=== PATIENT | male | born 1985 | race Caucasian/White ===

== ENCOUNTER 2018-04-29 15:13 | Emergency (ER) | payer BC, SELFPAY ==
[2018-04-29 15:15] VITALS: BP 124/72; PULSE 68; RESP 18; TEMP 36.7; O2SAT 99
--- NOTE | 2018-04-29 15:25 | ED.GENADUL_ITS ---
Discharge Plan Discharge Details Chief Complaint: FlankPain Primary Care Provider: NONE,NONE ED Provider: Gary Hernandez Home Meds and New Rx's Prescriptions: No Action magnesium 250 mg Tablet 1 tab PO DAILY RF: 0 topiramate 100 mg Tablet 300 mg PO DAILY RF: 0 melatonin 10 mg Tablet 10 mg PO HS PRNRF: 0 Medical Decision Making 32yom with flank pain that has stuttered over days time. He arrives afebrile, interactive, well-appearing. He is a stone former and his exam is notable for tenderness overlying the right abdomen and flank. Differential diagnosis would include renal colic, urinary tract infection, muscular strain of the right paraspinous musculature. Patient had IV access established, given fluid bolus and parenteral analgesia. He is referred for laboratory testing and CT scan. Patient has evidence of trace hematuria. His labs are otherwise reassuring. He is noted to have a potassium of 3.3. CT reveals left-sided renal calculi without evidence of right sided calculus or ureteral obstruction. Patient's pain is improved with analgesia. He is stable and improved and appropriate for discharge home. He is desirous of obtaining primary care in this area and we will ask care management to assist with obtaining a follow-up appointment. HPI General Mode of arrival: ambulatory . Date/Time Provider Initiated Documentation: 04/29/18 15:15 . Limitations to Documentation: no limitations . History of Present Illness 32 year old M presents to the emergency department with the chief complaint of R flank pain, described as moderate and similar to prior episodes, Patient started experiencing this day(s) and it has been intermittent. No relieving factors improve symptom(s), No exacerbating factors reported . Patient notes denies fever/chills. Patient did receive the following treatments prior to arrival, none HPI Narrative: 32yom with stuttering R flank pain over days time, worse today, similar to previous kidney stones. No f/c/n/v. Related Data Home Medications Medication Instructions Recorded Confirmed magnesium 1 tab PO DAILY 04/29/18 04/29/18 melatonin 10 mg PO HS PRN 04/29/18 04/29/18 topiramate 300 mg PO DAILY 04/29/18 04/29/18 Allergies Allergy/AdvReac Type Severity Reaction Status Date / Time acetaminophen [From Vicodin] Allergy Unverified 04/29/18 15:29 amitriptyline Allergy Unverified 04/29/18 15:29 hydrocodone [From Vicodin] Allergy Unverified 04/29/18 15:29 General Stated Complaint: FlankPain JACK: 3 Review of Systems Review of Systems 8 systems reviewed and otherwise neg Exam Narrative Exam Narrative: GEN: awake, alert, oriented 3. Pleasant, well groomed, interactive. HEAD: Normocephalic, atraumatic ENT: Mucous membranes moist, oropharynx unremarkable, External ear exam unremarkable EYES: PERRL, EOMI NECK: Full ROM, no CHANNING, no menigismus CHEST/RESP: Nontender, clear to auscultation bilateral, no wheeze/rhonchi/rales CARDIOVASCULAR: RRR, no murmur, rub sherice. 2+ Rad pulse bilateral ABDOMEN: Soft, min R tenderness to palpation without rebound or guarding, no mass. +Bowel sounds. Right CVA tenderness. Back exam otherwise unremarkable EXT: Full ROM, no edema, no rash Neuro: Grossly normal neurologic exam, conversant, interactive. Psych: Speech fluent, thoughts congruent, affect normal Course Vital Signs Temperature 36.7 C 04/29/18 15:15 Pulse 68 04/29/18 15:15 Respiratory Rate 18 04/29/18 15:15 Blood Pressure 124/72 04/29/18 15:15 Pulse Oximetry 99 04/29/18 15:15 Temperature 36.7 C 04/29/18 15:15 Temperature Source Skin 04/29/18 15:15 Pulse 68 04/29/18 15:15 Respiratory Rate 18 04/29/18 15:15 Blood Pressure 124/72 04/29/18 15:15 Blood Pressure Position Sitting 04/29/18 15:15 Pulse Oximetry 99 04/29/18 15:15 Oxygen Delivery Method Room Air 04/29/18 15:15 Oxygen Flow Rate 0 04/29/18 15:15 Pain Level 8 04/29/18 15:15
--- NOTE | 2018-04-29 15:31 | DI.CT_ITS ---
SYMPTOMS/DIAGNOSIS: RIGHT FLANK PAIN ABDOMINAL AND PELVIC CT: CT examination of the abdomen and pelvis was performed without contrast administration. Images obtained through the lung bases are unremarkable. The liver, spleen, pancreas, gallbladder and bile ducts are unremarkable. Adrenals appear intact bilaterally. Abdominal aorta is of normal diameter. No abdominal wall hernia seen. No significant abdominal or pelvic adenopathy seen. The appendix appears normal. No focal bowel pathology identified. Right kidney and ureter are normal in appearance. No evidence of obstruction or calcification. Left kidney contains multiple calculi, the largest measuring about 13 mm in diameter. No left hydronephrosis, hydroureter or ureterolithiasis identified. Urinary bladder is essentially empty. CONCLUSION: Nonobstructing left nephrolithiasis. No other significant finding.
[2018-04-29] MEDS: Ondansetron 4 MG/2 ML VIAL IVP (15:49)
[2018-04-29] MEDS: Ketorolac 30 MG/ML VIAL IVP (15:49)
[2018-04-29] MEDS: Normal Saline 1,000 ML 1000 ML IV (15:49)
[2018-04-29 15:54] LABS: Bilirubin Negative (Negative); Blood Trace-intact (Negative); Clarity Clear; Glucose Negative (Negative); Ketones Negative (Negative); Leukocyte Esterase Negative (Negative); Nitrite Negative (Negative); Urobilinogen 0.2 EU/dL (Up TO 0.2)
[2018-04-29 15:57] LABS: Abs Immature Grans 0.01 k/cumm (0.0-0.09); Absolute Basophil Count 0.02 k/cumm (0.0-0.2); Absolute Eosinophil Count 0.18 k/cumm (0.0-0.7); Absolute Lymphocyte Count 1.89 k/cumm (1.2-3.4); Absolute Monocyte Count 0.68 k/cumm (0.11-0.7); Absolute Neutrophil Count 3.43 k/cumm (1.2-6.7); Basophils % 0.3; Eosinophils % 2.9; HCT 44.1 % (40.0-50.0); HGB 14.5 g/dL (13.5-17.5); Immature Grans % 0.2; Lymphocytes % 30.4; Mean Corp. HGB Concentration 32.9 g/dL (32.0-36.0); Mean Corpuscular Hemoglobin 28.2 pg (27.0-33.0); Mean Corpuscular Volume 85.8 fL (80-95); Mean Platelet Volume 9.9 fL (8.0-11.0); Neutrophils % 55.2; Platelet Count 202 x1000/uL (130-400); RBC 5.14 m/cumm (4.50-6.00); RBC Distribution Width 13.4 % (11.8-14.1); White Blood Cell Count 6.21 k/cumm (4.4-10.8)
[2018-04-29 16:12] LABS: ALT 37 U/L (12-78); AST 19 U/L (15-37); Albumin 4.1 g/dL (3.4-5.0); Alkaline Phosphatase 116 U/L (46-116); Anion Gap 7.2 mmol/L (3-11); BUN 14 mg/dL (7-18); Bilirubin, Total 0.4 mg/dL (0.2-1.0); CO2 25.8 mmol/L (21.0-32.0); CREATININE 1.29 mg/dL (0.70-1.30); Calcium 8.6 mg/dL (8.5-10.1); Chloride 106 mmol/L (98-107); Glucose 85 mg/dL (70-100); Potassium 3.3 mmol/L (3.5-5.1); Sodium 139 mmol/L (136-145)
[2018-04-29 16:20] LABS: Epithelial Cells Rare HPF (Negative); RBC 0-2 (0-2); WBC 0-2 HPF (0-5)
[2018-04-29 16:21] LABS: Bacteria Rare HPF (Negative); C & S Indicated? No; Casts Negative LPF (Negative); Crystals Negative HPF (Negative); Mucus Negative (Negative)
[2018-04-29] MEDS: HYDROmorphone 2 MG/ML VIAL 1 MG IVP (16:29)
[2018-04-29 16:59] VITALS: BP 109/74; PULSE 56; RESP 17; TEMP 36.9; O2SAT 99
[2018-04-29 17:42] VITALS: BP 109/74; PULSE 56; RESP 17; TEMP 36.9; O2SAT 99
--- NOTE | 2018-04-30 08:31 | PDOC.ERCMPRO ---
Care Management Progress Note 04/30/18-Pt seen with a kidney stone on 04/29/[address] Adi Hernandez. Pt request to establish a PCP as he he new to the area. Referral faxed to [facility] as Dr. Salinas Dixon was radio division officer.
== END 2018-04-29 17:43 | disposition home or self-care (01) ==
PROVIDERS: Emergency Provider Emergency Medicine
DX: R10.31 Right lower quadrant pain (principal); Z87.442 Personal history of urinary calculi
CPT/HCPCS: 36415; 80053; 96361; 96374; 96375; 99284; 74176; 81003; 81015; 85025; J1885; J2405

== ENCOUNTER → 2021-02-14 09:07 | Outpatient (CLI) | payer BC, SELFPAY ==
--- NOTE | 2021-02-14 11:35 | DI.RAD_ITS ---
Exam(s) XR CHEST 2V PA LATERAL EXAM: XR CHEST 2V PA LATERAL CLINICAL HISTORY: HEMOPTYSIS, R04.2 TECHNIQUE: 2D digital imaging was performed. COMPARISON: No exams were available for comparison FINDINGS: MEDIASTINUM: Normal. HEART: Normal. PULMONARY VASCULATURE: Normal. LUNGS: Clear. PLEURAL SPACE: No pleural effusion or pneumothorax. BONE:Unremarkable for age. IMPRESSION: No acute abnormality. DATA REPOSITORY: RADIATION DOSE DELIVERED:
== END ==
PROVIDERS: Visit Provider Nurse Practitioner Family
DX: R04.2 Hemoptysis (principal)
CPT/HCPCS: 71046

== ENCOUNTER 2021-02-14 15:41 | Outpatient (REF) | payer BC, SELFPAY ==
[2021-02-14 18:53] LABS: Prothrombin Time 9.9 sec (9.3-11.0)
[2021-02-14 19:15] LABS: HGB 15.1 g/dL (13.5-17.5); MCHC 32.8 % (32.0-36.0); MCV 85.3 fL (80-95); MPV 10.3 fL (8.0-11.0); Platelet Count 226 10^3/uL (130-400); RBC 5.39 10^6/uL (4.36-5.78); RDW 12.9 % (11.8-14.1); RDW-SD 39.8 fL; WBC 6.26 10^3/uL (4.4-10.8)
== END 2021-02-14 15:42 | disposition home or self-care (01) ==
LOC: LBN 15:41
PROVIDERS: Visit Provider Nurse Practitioner Family
DX: R04.2 Hemoptysis (principal)
CPT/HCPCS: 85027; 85610; 85730

== ENCOUNTER → 2021-03-09 15:42 | Outpatient (CLI) | payer BC, SELFPAY ==
--- NOTE | 2021-03-09 | DI.RAD_ITS ---
Exam(s) XR LUMBAR SPINE COMPLETE EXAM: XR LUMBAR SPINE COMPLETE CLINICAL HISTORY: LOW BACK PAIN, M54.5. TECHNIQUE: 2D digital imaging was performed. COMPARISON: No exams were available for comparison FINDINGS: BONES: No fracture or destructive lesion. Vertebral bodies are unremarkable. No facet hypertrophy louis ntified. DISKS: Intervertebral disc spaces are maintained. ALIGNMENT: Lumbar spinal alignment is within normal limits. SOFT TISSUE: Normal. IMPRESSION: Unremarkable radiographs of the lumbar spine. DATA REPOSITORY: RADIATION DOSE DELIVERED:
== END ==
PROVIDERS: Visit Provider Physician Assistant Medical
DX: M54.5 Low back pain (principal)
CPT/HCPCS: 72110

== ENCOUNTER 2021-03-14 19:41 | Emergency (ER) | payer BC, SELFPAY ==
[2021-03-14 19:47] VITALS: BP 118/87; PULSE 88; RESP 18; TEMP 36.7; O2SAT 97
--- NOTE | 2021-03-14 20:00 | DI.CT_ITS ---
Exam(s) CT ABDOMEN PELVIS W EXAM: CT ABDOMEN PELVIS W CLINICAL HISTORY: right flank and back pain, fhx of colon cancer. TECHNIQUE: Imaging Protocol: Axial computed tomography images with coronal and sagittal reformatted images were created and reviewed CONTRAST MATERIAL: Intravenous: Omnipaque 100cc Oral: None COMPARISON: CT CT renal colic wo from 04/29/2018 FINDINGS: VISUALIZED LUNG BASES: No nodules nor pleural effusions evident. ABDOMEN: There is no ascites. LIVER: There are no focal hepatic lesions evident . GALLBLADDER/BILIARY: No obvious gallbladder pathology. CBD is not dilated. PANCREAS: No evidence of pancreatic mass nor dilatation of the pancreatic duct. SPLEEN: Spleen is not enlarged. No obvious intrasplenic lesions. Splenic and portal veins are paten t. ADRENALS: There are no significant adrenal masses. KIDNEYS:No cysts evident. No solid renal masses. However, there are multiple calculi in the inferior pole of the left kidney. The largest of these measures 8 millimeters. No hydronephrosis nor hydrou reter. No calculi in the nondistended urinary bladder.. ABDOMINAL AORTA: Abdominal aorta is not enlarged. LYMPH NODES:There is no retroperitineal nor paraaortic adenopathy. ABDOMINAL WALL: No evidence of significant anterior abdominal wall hernia. GI: There is fecalization of distal small bowel loops, these exhibiting upper normal diameter. Also abundant fecal material in the colon. Appendix unremarkable. PELVIS: GI: No evidence of appendicitis.No evidence of sigmoid diverticulitis. LYMPH NODES: There is no intrapelvic nor inguinal adenopathy. REPRODUCTIVE: Age-appropriate URINARY BLADDER: No calculi nor obvious masses evident OSSEOUS: No significant osseous lesions. IMPRESSION: 1. Abundant fecal material in the colon and there is also fecalization of distal small bowel loops. Probably related to delayed bowel transit. 2. There are nonobstructive calculi in the lower pole of the left kidney. Largest calculus at this l ocation is 8 millimeters. There are no calculi in the opposite-right kidney. No hydronephrosis. No hydroureter. RADIATION DOSE DELIVERED: Total DLP DATA REPOSITORY: All CT scans at this facility are submitted to the National Radiology Data Registry (NRDR) Dose Index Registry (DIR) with the [employer] (ACR). RADIATION OPTIMIZATION: All CT scans at this facility use at least one of these dose optimization te chniques: automated exposure control; mA and/or kV adjustment per patient size (includes targeted exa ms where dose is matched to clinical indication); or iterative reconstruction.
--- NOTE | 2021-03-14 20:08 | DI.CT_ITS ---
Exam(s) CT LUMBAR SPINE RECONS EXAM: CT LUMBAR SPINE RECONS CLINICAL HISTORY: right back pain, fhx of colon cancer. TECHNIQUE: Imaging Protocol: Axial computed tomography images with coronal and sagittal reformatted images were created and reviewed COMPARISON: CT CT renal colic wo from 04/29/2018 FINDINGS: Bones: There are no fractures, listhesis, nor pars defects. There are no lytic osseous lesions evide nt. Left renal calculi are incidentally noted in the field of view of this study. INDIVIDUAL LEVELS: T12-L1:No disc herniation nor canal stenosis. Facet joints unremarkable. No foraminal stenosis. L1-2: No disc herniation nor canal stenosis. Facet joints unremarkable. No foraminal stenosis. L2-3: No disc herniation nor canal stenosis. Facet joints unremarkable. No Foraminal stenosis L3-4: No disc herniation nor canal stenosis. Facet joints unremarkable. No foraminal stenosis. L4-5: Minimal disc space narrowing. Mild annular bulging. Mild central spinal canal stenosis. No p rominent foraminal stenosis. L5-S1: Mild disc space narrowing. Broad annular bulging. Moderate central spinal canal stenosis. Mil d bilateral foraminal stenosis. Mild facet arthropathy bilaterally. The visualized sacroiliac joints and sacrum appear unremarkable. PARASPINAL SOFT TISSUES: Visualized paraspinal tissues appear unremarkable. IMPRESSION: 1. Most significant findings at L5-S1 level where there is broad annular bulging with moderate centra l spinal canal stenosis. Also mild bilateral foraminal stenosis at this level. 2. Similar but somewhat less findings at L4-5 level. 3. No fractures. No listhesis. RADIATION DOSE DELIVERED: Total DLP DATA REPOSITORY: All CT scans at this facility are submitted to the National Radiology Data Registry (NRDR) Dose Index Registry (DIR) with the [employer] (ACR). RADIATION OPTIMIZATION: All CT scans at this facility use at least one of these dose optimization te chniques: automated exposure control; mA and/or kV adjustment per patient size (includes targeted exa ms where dose is matched to clinical indication); or iterative reconstruction.
--- NOTE | 2021-03-14 20:12 | ED.GENADUL_ITS ---
Discharge Plan Disposition Patient Disposition: HOME Condition: Good Discharge Details Clinical Impression: Lumbago Primary Care Provider: None,None ED Provider: Rizwan Recio Home Meds and New Rx's Prescriptions: New cyclobenzaprine 10 mg tablet 10 mg PO TID Qty: 14 RF: 0 lidocaine [Lidoderm] 1 PATCH patch 1 patch Topical Q24H Qty: 5 RF: 0 prednisone 50 MG tablet 50 mg PO DAILY Qty: 5 RF: 0 Continued gabapentin 300 mg capsule 300 mg PO BID RF: 0 Aimovig Autoinjector 140 mg/mL auto-injector 140 mg SUBCUT Q1-3M RF: 0 furosemide 20 mg tablet 20 mg PO BID RF: 0 Discharge Instructions Instructions: Low Back Strain (ED) Additional Instructions: At this time your signs and symptoms are clinically consistent with a back sprain. This can cause significant pain and take a fair bit of time to heal. I expect 1 to 2 months for potential resolution. In the meantime do not lift anything greater than 5 pounds for the next 2 weeks. Avoid any significant vigorous physical activity. Perform easy gentle regular activities at home without any significant bending or lifting. Please take the steroids as directed. You have been given a prescription for Lidoderm patch. If your insurance does not cover this you can get [id number] Lidoderm patches at 4% which are almost just as effective. Please take the Flexeril as directed but do not take it when driving or operating any vehicles or heavy machinery, swimming, taking long baths, or operating firearms. Please use a heating pad as often as possible on your back. Perform daily gentle stretches on your back. Please continue to take the Tylenol and Motrin. You can take 1000 mg of Tylenol every 6 hours and 600 mg of ibuprofen every 6 hours. If you notice any worsening of your symptoms, or any new symptoms such as vomiting, diarrhea, fever, chills, shortness of breath, chest pain, numbness or tingling in your groin or legs, weakness in your legs, loss of control for your bowels or bladder, or fainting , please return immediately to the emergency department for reevaluation. Please follow up with your primary care provider as soon as possible for reassessment and reevaluation. As always, it was a pleasure participating in your medical care today. We have given you a few Valium pills to use for breakthrough pain. I would not take these in conjunction with the cyclobenzaprine, as it can cause significant lightheadedness and sleepiness. We will place a referral for a new primary care provider for you. If your symptoms continue you may need to follow-up with physical therapy and the back pain center at [facility]. Medical Decision Making 35-year-old male with no significant past medical history except for kidney stones presents today for lower back pain. For the last month the patient has had back pain, it seems to lateralize to the right. It is worse with flexion and extension of the back, over the last week it has become notably worse. It is also worsened recently with bowel movement. He denies any urinary complaints. He states that this does not feel like his kidney stones in the past. He denies any fever chills or weight loss. He was seen by the [facility] last week, x-ray was unremarkable, he was started on Flexeril Tylenol Motrin Lidoderm patch which slightly helped the pain at first, but now the pain is worse and unimproved with these meds. He does have a strong family history of colon cancer. He denies any blood in his stool. No other complaints at this time. No other modifying factors. Patient denies any saddle anesthesia, numbness or tingling in the groin, change in sensation when wiping. Patient denies any change in sensation during sexual intercourse, difficulty achieving or maintaining an erection or ejaculation, bowel or bladder incontinence, leakage, or retention. Patient denies any weakness in the lower extremities, atypical falls or imbalance. Exam demonstrates midline tenderness at L3 and L4, mild spasm on the right. Normal neurologic exam otherwise. Differential includes musculoskeletal spasm, less likely malignancy. Less likely kidney stone. We will treat the patient's pain, get a CT scan of the abdomen pelvis and L-spine, monitor closely and reassess. 9:43 PM Laboratory work-up is returned unremarkable, CT scan shows no evidence of significant thickening of the colon, no signs of mass. He does have some mild degenerative disc disease at L4-L5 and S1 levels. Likely a potential causative agent for his pain. Patient's pain is stable here after for morphine. He feels well. He was given steroids. Will give steroid Lidoderm patch and continued Flexeril for home use, with 3 Valium tablets for breakthrough pain. Will recom mend close follow-up with a new PCP that we will help establish, physical therapy as needed at home, and potential referral to the [facility] back pain center if his pain does not improve with this therapy. Repeat exam continues to show no signs of cauda equina syndrome or cord compression. Discussed red flags which to return. I have extensively reviewed the treatment plan and discharge instructions with the patient. I have addressed all patient concerns at this time. The patient was made aware of what symptoms to monitor for that would warrant a return to the emergency department. Discussed the plan with the patient, they demonstrate verbal understanding and agreement with our assessment and plan at this time. The documentation in this chart was dictated using [employer] dictation software. Please excuse any dictation errors. FINDINGS: Lungs: Lung bases are clear. Liver: Unremarkable. No mass. Gallbladder and bile ducts: Unremarkable. No calcified stones. No ductal dilation. Pancreas: Unremarkable. No ductal dilation. Spleen: Unremarkable. No splenomegaly. Adrenal glands: Normal. No mass. Kidneys and ureters: Symmetric renal enhancement without mass. There are a few nonobstructive nephroliths within the inferior left renal pole collecting system, largest measuring up to 8 mm. No hydronephrosis. Ureters are normal in course and caliber. Stomach and bowel: Small bowel is normal in caliber without focal bowel wall thickening. There is fecalization of the distal/terminal ileum. There is moderate colonic stool with well-formed stool throughout the colon. No focal colonic mural thickening or significant pericolonic inflammatory stranding. No bowel obstruction Appendix: Within normal limits. Intraperitoneal space: No significant free fluid in the abdomen or pelvis. No free air. Vasculature: Within normal limits. No abdominal aortic aneurysm. Lymph nodes: No pathologically enlarged lymph nodes. Urinary bladder: Unremarkable as visualized. Reproductive: Unremarkable as visualized. Bones/joints: No acute fracture. Soft tissues: No focal abnormality. IMPRESSION: 1. Fecalization of the distal/terminal ileum. Nonspecific finding, could be seen in association with enteritis, ileus, or other causes of delayed small bowel transit. Correlate clinically. 2. Moderate colonic stool. Correlate clinically for constipation. 3. Nonobstructive left nephroliths measuring up to 8 mm. Thank you for allowing us to participate in the care of your patient. Dictated and Authenticated by: Adarsh Giron MD 03/14/2021 9:25 PM Eastern Time ([place] & [place]) FINDINGS: Vertebrae: No suspicious osseous lytic or blastic lesion. Vertebral body heights are preserved, no discrete or displaced fracture. No spondylolisthesis. Discs/Spinal canal/Neural foramina: There is mild intervertebral disc height loss at the L4-S1 levels with small posterior disc bulges. No high-grade osseous neural foraminal or osseous central canal stenosis. Kidneys and ureters: Nonobstructive left nephroliths. No hydronephrosis. Soft tissues: Unremarkable. IMPRESSION: Mild degenerative disc disease at the L4-S1 levels as discussed. Thank you for allowing us to participate in the care of your patient. HPI General Date/Time Provider Initiated Documentation: 03/14/21 19:42 . HPI Narrative: 35-year-old male with no significant past medical history except for kidney stones presents today for lower back pain. For the last month the patient has had back pain, it seems to lateralize to the right. It is worse with flexion and extension of the back, over the last week it has become notably worse. It is also worsened recently with bowel movement. He denies any urinary complaints. He states that this does not feel like his kidney stones in the past. He denies any fever chills or weight loss. He was seen by the [facility] last week, x-ray was unremarkable, he was started on Flexeril Tylenol Motrin Lidoderm patch which slightly helped the pain at first, but now the pain is worse and unimproved with these meds. He does have a strong family history of colon cancer. He denies any blood in his stool. No other complaints at this time. No other modifying factors. Patient denies any saddle anesthesia, numbness or tingling in the groin, change in sensation when wiping. Patient denies any change in sensation during sexual intercourse, difficulty achieving or maintaining an erection or ejaculation, bowel or bladder incontinence, leakage, or retention. Patient denies any weakness in the lower extremities, atypical falls or imbalance. Related Data Home Medications Medication Instructions Recorded Confirmed Aimovig Autoinjector 140 mg SUBCUT Q1-3M 03/14/21 03/14/21 cyclobenzaprine 10 mg PO TID #14 tab 03/14/21 furosemide 20 mg PO BID 03/14/21 03/14/21 gabapentin 300 mg PO BID 03/14/21 03/14/21 lidocaine [Lidoderm] 1 patch TOPICAL Q24H #5 ea 03/14/21 prednisone 50 mg PO DAILY #5 tab 03/14/21 Previous Rx's Medication Instructions Recorded cyclobenzaprine 10 mg PO TID #14 tab 03/14/21 lidocaine [Lidoderm] 1 patch TOPICAL Q24H #5 ea 03/14/21 prednisone 50 mg PO DAILY #5 tab 03/14/21 Allergies Allergy/AdvReac Type Severity Reaction Status Date / Time acetaminophen [From Vicodin] Allergy Unverified 03/14/21 20:28 amitriptyline Allergy Unverified 03/14/21 20:28 hydrocodone [From Vicodin] Allergy Unverified 03/14/21 20:28 General Stated Complaint: Nk/Back Pain JACK: 4 Review of Systems All systems reviewed & are unremarkable except as noted in HPI and below PFSH Social History Smoking/Tobacco Use Status: Never Smoking risk assessment performed?: Yes Alcohol Intake: never Drug use: Never Substance use type: does not use Do you feel safe at home: Yes Do you feel safe in your relationship?: Yes Exam Narrative Exam Narrative: 1.Const: Well-nourished, Well-developed, appearing stated age 2.Eyes: PERRL, no conjunctival injection, and symmetrical lids. 3.ENT: Atraumatic external nose and ears. Moist MM. Neck: Symmetric, trachea midline, No thyromegaly. 4.CVS: +S1/S2, No murmurs or gallops. Peripheral pulses 2+ and equal in all extremities. Brisk capillary refill in all extremities. 5.RESP: Unlabored respiratory effort. Clear to auscultation bilaterally. No wheezes rales or rhonchi 6.GI: Soft, Nontender/Nondistended, No hepatosplenomegaly. No guarding or rebound. 7.MSK: Normocephalic/Atraumatic, Extremities w/o deformity or ttp No cyanosis or clubbing, Normal movement of all extremities No midline tenderness to palpation over the CT spine. Patient does have midline spinal tenderness over the lower lumbar spine L3 and L4 normal ROM in flexion, extension, side bend, and rotation. Patient has +5 out of 5 strength in the lower extremities in dorsiflexion and plantarflexion, knee flexion and exte nsion, hip flexion and extension. Normal strength for dorsiflexion and plantar flexion of the great toe bilaterally. There is +2 over 2 dorsalis pedis pulses bilaterally. There is normal sensation to the skin with light touch at the foot, knee, and hip. Normal saddle sensation. Good sensation over the deep sural nerve area bilaterally. Rectal exam demonstrates good rectal tone and good perirectal sensation. Reflexes are +2 over 4 in the patellar reflex bilaterally. +5 out of 5 strength in the medial, ulnar, radial nerve distribution bilaterally in the hands as well as intact light touch sensation to these dermatomes on the hands 8.Skin: Warm, Dry. No rashes or lesions. 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 Sensation grossly intact, no focal neurologic deficits. 10.Psych: (AAO) x3. Appropriate mood and affect Course Vital Signs Vital signs: Vital Signs Temperature 36.7 C 03/14/21 19:47 Pulse 88 03/14/21 19:47 Respiratory Rate 18 03/14/21 19:47 Blood Pressure 118/87 03/14/21 19:47 Pulse Oximetry 97 03/14/21 19:47 Temperature 36.7 C 03/14/21 19:47 Temperature Source Temporal Artery Scan 03/14/21 19:47 Pulse 88 03/14/21 19:47 Respiratory Rate 18 03/14/21 19:47 Respiratory Effort Non-Labored 03/14/21 19:54 Blood Pressure 118/87 03/14/21 19:47 Blood Pressure Position Sitting 03/14/21 19:47 Pulse Oximetry 97 03/14/21 19:47 Oxygen Delivery Method Room Air 03/14/21 19:47 Oxygen Flow Rate 0 03/14/21 19:47 Pain Level 9 03/14/21 20:02
[2021-03-14] MEDS: Ketorolac 15 MG/ML VIAL IVP (20:37)
[2021-03-14] MEDS: methylPREDNISolone SUCC 125 MG VIAL IVP (20:37)
[2021-03-14 20:39] LABS: Abs Immature Grans 0.01 10^3/uL (0.0-0.06); Absolute Basophil Count 0.04 10^3/uL (0.0-0.2); Absolute Eosinophil Count 0.18 10^3/uL (0.0-0.7); Absolute Lymphocyte Count 2.22 10^3/uL (1.2-3.4); Absolute Monocyte Count 0.53 10^3/uL (0.1-0.8); Absolute Neutrophil Count 3.61 10^3/uL (1.2-6.7); Basophils % 0.6; Eosinophils % 2.7; HCT 43.7 % (40.0-50.0); HGB 14.3 g/dL (13.5-17.5); Immature Grans % 0.2; Lymphocytes % 33.7; MCHC 32.7 % (32.0-36.0); MCV 85.5 fL (80-95); MPV 9.5 fL (8.0-11.0); Neutrophils % 54.8; Nucleated RBC 0 %; Platelet Count 211 10^3/uL (130-400); RBC 5.11 10^6/uL (4.36-5.78); RDW-SD 40.2 fL; WBC 6.59 10^3/uL (4.4-10.8)
--- NOTE | 2021-03-14 20:39 | NUR.NOTE ---
To CT scan. Gait steady.Nursing Note:
[2021-03-14] MEDS: Omnipaque 350 MG/ML 100 ML BTL IV (20:50)
[2021-03-14] MEDS: Normal Saline - Diluent 50 ML VIAL IV (20:52)
[2021-03-14] MEDS: Normal Saline Flush 10 ML SYR IVP (20:52)
[2021-03-14 20:58] LABS: ALT 40 U/L (16-63); AST 25 U/L (15-37); Albumin 3.9 g/dL (3.4-5.0); Alkaline Phosphatase 101 U/L (46-116); Anion Gap 8.9 mmol/L (3-11); BUN 21 mg/dL (7-18); Bilirubin, Total 0.4 mg/dL (0.2-1.0); CO2 29.1 mmol/L (21.0-32.0); CREATININE 1.3 mg/dL (0.70-1.30); Calcium 9.2 mg/dL (8.5-10.1); Chloride 104 mmol/L (98-107); Glucose 102 mg/dL (74-106); Potassium 3.9 mmol/L (3.5-5.1); Sodium 142 mmol/L (136-145); Total Protein 7.6 g/dL (6.4-8.2)
[2021-03-14 21:03] LABS: Bilirubin Negative (Negative); Blood Negative (Negative); Clarity Sl Cloudy (Clear); Glucose Negative (Negative); Ketones Negative (Negative); Leukocyte Esterase Negative (Negative); Nitrite Negative (Negative); Urobilinogen 0.2 EU/dL (Up TO 0.2)
[2021-03-14 21:24] VITALS: BP 114/72; PULSE 70; RESP 18; O2SAT 98
--- NOTE | 2021-03-14 21:26 | DI.VRAD_ITS ---
PROCEDURE INFORMATION: Exam: CT Abdomen And Pelvis With Contrast Exam date and time: 03/14/2021 8:11 PM Age: 35 years old Clinical indication: Other: Right flank and back pain, fhx of colon cancer TECHNIQUE: Imaging protocol: Computed tomography of the abdomen and pelvis with contrast. Radiation optimization: All CT scans at this facility use at least one of these dose optimization techniques: automated exposure control; mA and/or kV adjustment per patient size (includes targeted exams where dose is matched to clinical indication); or iterative reconstruction. Contrast material: OMNIPAQUE 350; Contrast volume: 100 ml; Contrast route: INTRAVENOUS (IV); COMPARISON: CT renal colic wo 04/29/2018 3:42 PM FINDINGS: Lungs: Lung bases are clear. Liver: Unremarkable. No mass. Gallbladder and bile ducts: Unremarkable. No calcified stones. No ductal dilation. Pancreas: Unremarkable. No ductal dilation. Spleen: Unremarkable. No splenomegaly. Adrenal glands: Normal. No mass. Kidneys and ureters: Symmetric renal enhancement without mass. There are a few nonobstructive nephroliths within the inferior left renal pole collecting system, largest measuring up to 8 mm. No hydronephrosis. Ureters are normal in course and caliber. Stomach and bowel: Small bowel is normal in caliber without focal bowel wall thickening. There is fecalization of the distal/terminal ileum. There is moderate colonic stool with well-formed stool throughout the colon. No focal colonic mural thickening or significant pericolonic inflammatory stranding. No bowel obstruction. Appendix: Within normal limits. Intraperitoneal space: No significant free fluid in the abdomen or pelvis. No free air. Vasculature: Within normal limits. No abdominal aortic aneurysm. Lymph nodes: No pathologically enlarged lymph nodes. Urinary bladder: Unremarkable as visualized. Reproductive: Unremarkable as visualized. Bones/joints: No acute fracture. Soft tissues: No focal abnormality. IMPRESSION: 1. Fecalization of the distal/terminal ileum. Nonspecific finding, could be seen in association with enteritis, ileus, or other causes of delayed small bowel transit. Correlate clinically. 2. Moderate colonic stool. Correlate clinically for constipation. 3. Nonobstructive left nephroliths measuring up to 8 mm. Dictated and Authenticated by: Adarsh Giron MD. Ordering:CHRISTOPHER Astorga MD
--- NOTE | 2021-03-14 21:30 | DI.VRAD_ITS ---
PROCEDURE INFORMATION: Exam: CT Lumbar Spine Without Contrast Exam date and time: 03/14/2021 8:26 PM Age: 35 years old Clinical indication: Other: Right back pain, fhx of colon cancer; Additional info: Right back pain, fhx of colon cancer recons TECHNIQUE: Imaging protocol: Computed tomography images of the lumbar spine without contrast. Radiation optimization: All CT scans at this facility use at least one of these dose optimization techniques: automated exposure control; mA and/or kV adjustment per patient size (includes targeted exams where dose is matched to clinical indication); or iterative reconstruction. COMPARISON: CR XR LUMBAR SPINE COMPLETE 03/09/2021 1:12 PM FINDINGS: Vertebrae: No suspicious osseous lytic or blastic lesion. Vertebral body heights are preserved, no discrete or displaced fracture. No spondylolisthesis. Discs/Spinal canal/Neural foramina: There is mild intervertebral disc height loss at the L4-S1 levels with small posterior disc bulges. No high-grade osseous neural foraminal or osseous central canal stenosis. Kidneys and ureters: Nonobstructive left nephroliths. No hydronephrosis. Soft tissues: Unremarkable. IMPRESSION: Mild degenerative disc disease at the L4-S1 levels as discussed. Dictated and Authenticated by: Adarsh Giron MD. Ordering:CHRISTOPHER Astorga MD
--- NOTE | 2021-03-14 21:45 | NUR.NOTE ---
Nursing Note: REFERAL SENT TO CM FOR EST PCP
[2021-03-14] MEDS: diazePAM 5 MG TAB 15 MG PO (21:48)
== END 2021-03-14 21:55 | disposition home or self-care (01) ==
PROVIDERS: Emergency Provider Student in an Organized Health Care Education/Training Program
DX: M54.5 Low back pain (principal); M51.37 Other intervertebral disc degeneration, lumbosacral region; Z87.442 Personal history of urinary calculi
CPT/HCPCS: 36415; 80053; 96374; 96375; 99285; 74177; 81003; 85025; 99284; J1885; J2930; J3490

== ENCOUNTER 2021-05-23 03:34 | Outpatient (CLI) | payer BC, SELFPAY ==
[2021-05-23 11:48] LABS: Hemoglobin A1C 5.2 % (<5.7)
[2021-05-23 12:10] LABS: Calculated LDL 90 mg/dL (<100); Cholesterol 166 mg/dL (<200); HDL Cholesterol 34 mg/dL (40-60); Triglyceride 210 mg/dL (<150)
== END 2021-05-23 03:35 | disposition home or self-care (01) ==
LOC: LBO 03:34
PROVIDERS: PCP Nurse Practitioner Family; Visit Provider Nurse Practitioner Family
DX: Z13.220 Encounter for screening for lipoid disorders (principal); Z13.1 Encounter for screening for diabetes mellitus
CPT/HCPCS: 36415; 80061; 83036

== ENCOUNTER 2021-07-22 10:52 | Emergency (ER) | payer OTHER, SELFPAY ==
[2021-07-22 10:57] VITALS: BP 131/77; PULSE 66; RESP 15; TEMP 37; O2SAT 97
[2021-07-22 11:11] VITALS: RESP 15
--- NOTE | 2021-07-22 11:28 | W.ED.GENAD ---
Discharge Plan Disposition Patient Disposition: HOME Condition: Stable Discharge Details Clinical Impression: Flu-like symptoms, Myalgia, Headache Primary Care Provider: Harley Graves ED Provider: Tolu Wolfe Home Meds and New Rx's Prescriptions: Continued Aimovig Autoinjector 140 mg/mL auto-injector 140 mg SUBCUT Q1-3M Qty: 1 RF: 3 furosemide [Lasix] 20 mg tablet 20 mg PO BID RF: 0 gabapentin 300 mg capsule 300 mg PO BID RF: 0 acetaminophen [Acetaminophen Extra Strength] 500 mg Tablet 1,000 mg PO Q6H PRNRF: 0 Discharge Instructions Instructions: Ondansetron (By mouth), Viral Syndrome (ED) Additional Instructions: Please maintain home isolation until Covid test is resulted and negative. Please drink plenty of fluid to stay hydrated. If you have if you have severe nausea, take Zofran 1 tab by mouth every 8 hours as needed. Please take ibuprofen over the counter. Take 600mg by mouth every 6 hours as needed for pain. Please contact your primary care physician to arrange follow-up. Return to the ER immediately for any worsening or new concerning symptoms. Referrals: Harley Graves, COMMERCIAL RELATIONSHIP MANAGER [Primary Care Provider] - Discharge Data Discharge Date/Time-TO BE ENTERED AT DEPARTURE: 07/22/21 11:51 Medical Decision Making 36-year-old male here with flulike illness, hemodynamically intact, no signs of focal bacterial infection on exam. He does appear slightly dehydrated. Patient does note some fatigue with exertional activities. Screening EKG was reviewed interpreted by me: Please see report, normal sinus rhythm, nondiagnostic. Supportive care recommended. Encouraged him to drink plenty of fluid to stay hydrated. I will provide Zofran to go for nausea. He was encouraged to use ibuprofen for discomfort and fever. Consider atypical presentation of Covid. I will send Covid test. Patient was encouraged to isolate until results is negative. Usual customary discharge instructions reviewed with patient. HPI General Mode of arrival: ambulatory. Date/Time Provider Initiated Documentation: 07/22/21 11:07. Limitations to Documentation: no limitations. Information obtained by: patient. HPI Narrative: 36-year-old male with history of intracranial hypertension, migraine headaches, here with chief complaint of body aches. Patient notes body aches with associated fever and chills over the past 2 to 3 days. Symptoms are moderate to severe. No modifiers. He has associated bilateral ear pain and nausea as well as MILLER. He has decreased appetite. No vomiting. No abdominal pain. Patient notes that his son has also been sick recently with nausea and decreased appetite. Related Data Home Medications Medication Instructions Recorded Confirmed gabapentin 300 mg PO BID 03/14/21 07/22/21 furosemide 20 mg tablet 20 mg PO BID 04/17/21 07/22/21 erenumab-aooe 140 mg/mL 140 mg SUBCUT Q1-3M #1 ml 06/29/21 07/22/21 subcutaneous auto-injector acetaminophen [Acetaminophen Extra 1,000 mg PO Q6H PRN 07/22/21 07/22/21 Strength] Previous Rx's Medication Instructions Recorded erenumab-aooe 140 mg/mL 140 mg SUBCUT Q1-3M #1 ml 06/29/21 subcutaneous auto-injector Allergies Allergy/AdvReac Type Severity Reaction Status Date / Time topiramate [From Topamax] Allergy Unknown Kidney Verified 07/22/21 11:04 stone acetaminophen [From Vicodin] Allergy Verified 07/22/21 11:04 amitriptyline Allergy Verified 07/22/21 11:04 hydrocodone [From Vicodin] Allergy Verified 07/22/21 11:04 verapamil AdvReac Unknown Dizziness/L Verified 07/22/21 11:04 ighthead diamox Allergy Unknown Other (See Uncoded 07/22/21 11:04 Comment) General Stated Complaint: GenMedical JACK: 3 Review of Systems All systems reviewed & are unremarkable except as noted in HPI and below Constitutional Constitutional: Reports chills, Reports fatigue, Reports fever(s), Reports poor appetite and Reports weakness ENT Ears, Nose, Mouth, and Throat: Reports as per HPI Cardiovascular Comments: Patient is some fatigue with exertion Respiratory Respiratory: Denies cough Gastrointestinal Gastrointestinal: Reports as per HPI Neurologic Neurologic: Reports weakness Endocrine Endocrine: Reports fatigue PFSH All Active Problems Flu-like symptoms (Acute) Myalgia (Acute) Headache (Acute) Idiopathic intracranial hypertension (Acute) Tension (Acute) Migraine without aura and with status migrainosus, not intractable (Acute) Occipital neuralgia (Acute) Lumbago (Acute) Medical History Acute kidney failure, unspecified Calculus of ureter Chest wall pain History of lumbar puncture Hydronephrosis with renal and ureteral calculous obstruction Other obstructive and reflux uropathy Rotator cuff syndrome Subacromial bursitis Surgical History S/P ureteral stent placement Social History Smoking/Tobacco Use Status: Never Second Hand Exposure: Yes Smoking risk assessment performed?: Yes Alcohol Intake: current Alcohol Intake frequency: a few times a month Alcohol type: hard liquor Drug use: Never Substance use type: does not use Caregiver/Support person: No Household members: spouse, family and children Housing: house Communication Needs: None Do you need help understanding health information?: Rarely Pets and animals: Yes Pets and animals: dog(s) Sexually active: Yes Do you think of yourself as: straight/heterosexual Current gender identity: male What is your relationship status?: How often do you talk on the phone with friends or family?: twice per week How often do you get together with friends or relatives?: once per week How often do you attend denominational or holiness services?: decline to answer Do you belong to any clubs or organized social groups?: no Panel score (0-1 are the most socially isolated patients): 2 What type of physical activity do you participate in: walking Duration: 60-90 minutes/day Frequency: daily Laila/Tenriism: Anglican Seatbelt use: always Helmet use: Yes Drive intox or ride w/intox chair car driver: No Do you feel safe at home: Yes Do you feel safe in your relationship?: Yes Exam Const General: cooperative and no acute distress HENMT Head: normocephalic and atraumatic Ears: mastoids normal and other (TMs full with no effusion or erythema) General nose exam: external nose normal Mouth: mucous membranes dry Throat: posterior oropharynx normal Eyes Conjunctivae: normal conjunctivae Sclera: normal sclerae EOM: EOM intact bilaterally Neck Neck: trachea midline and supple Resp Auscultation: clear to auscultation bilaterally, no rales, no rhonchi and no wheezes Cardio Jugular venous pressure: no JVD Rate: regular rate and not tachycardic Rhythm: regular rhythm GI Palpation: soft, not firm, no guarding, no masses, not rigid and nontender Skin General skin exam: no rashes or lesions noted Neuro General: patient alert, patient awake, patient oriented x3 and tone normal Extrem General: no edema Psych Appearance: grossly normal Mental Status: mental status grossly normal Speech and Movement: speech and movement normal Course Vital Signs Vital signs: Vital Signs Temperature 37 C 07/22/21 10:57 Pulse 66 07/22/21 10:57 Respiratory Rate 15 07/22/21 10:57 Blood Pressure 131/77 07/22/21 10:57 Pulse Oximetry 97 07/22/21 10:57 Temperature 37 C 07/22/21 10:57 Temperature Source Temporal Artery Scan 07/22/21 10:57 Pulse 66 07/22/21 10:57 Respiratory Rate 15 07/22/21 11:11 Respiratory Effort Non-Labored 07/22/21 11:11 Respiratory Depth Normal 07/22/21 11:11 Respiratory Pattern Normal 07/22/21 11:11 Blood Pressure 131/77 07/22/21 10:57 Blood Pressure Position Sitting 07/22/21 10:57 Pulse Oximetry 97 07/22/21 10:57 Oxygen Delivery Method Room Air 07/22/21 10:57 Oxygen Flow Rate 0 07/22/21 10:57 Pain Level 6 07/22/21 10:57 PAWSS Have you Been Recently Intoxicated or Drunk Within the Last 30 days?: No Have you Ever Experienced Previous Episodes of Alcohol Withdrawal?: No Have you ever Experienced Withdrawal Seizures?: No Have you ever Experienced Delirium Tremens(DT)s?: No Have you ever undergone Alcohol Rehabilitation Treatment (i.e, inpt ot outpatient treatment programs)?: No Have you ever Experienced Blackouts?: No Have you ever Combined Alcohol with other Downers within the last 90 days?: No Have you ever Combined Alcohol with any other Substance of Abuse during the last 90 days?: No Positive Blood Alcohol level on Presentation? [PCS.BAL]: No Evidence of Increased Autonomic Activity (i.e. HR>120, tremor, sweating, agitation, nausea)?: No Result: 0
--- NOTE | 2021-07-22 11:30 | RT.EKG_ITS ---
APPROVED REPORT Exam: Resting ECG Reason for Exam: fatigue Patient Location: E HR:61 bpm ECG Measurements Heart Rate 61 AXIS TX 186 P 16 QRSd 98 QRS 1 QT 366 T 31 QTc 370 Conclusion Sinus rhythm...normal P axis, V-rate 60- 99
[2021-07-22] MEDS: Ondansetron O.D.T. 4 MG TABEF, 3 TABS/BTL PO (11:43)
[2021-07-22] MEDS: Ibuprofen 600 MG TAB PO (11:43)
[2021-07-24 12:49] LABS: COVID-19 RT-PCR UVMMC Result Negative (Negative)
--- NOTE | 2021-07-24 13:36 | NUR.NOTE ---
left a message for patient about his covid results
== END 2021-07-22 11:51 | disposition home or self-care (01) ==
PROVIDERS: Emergency Provider Student in an Organized Health Care Education/Training Program; PCP Nurse Practitioner Family
DX: M79.10 Myalgia, unspecified site (principal); R51.9 Headache, unspecified; R53.83 Other fatigue; R11.0 Nausea; R50.9 Fever, unspecified; Z20.822 Contact with and (suspected) exposure to COVID-19
CPT/HCPCS: 93005; 99283; U0003; 93010

== ENCOUNTER 2021-09-01 09:43 | Outpatient (REF) | payer OTHER, SELFPAY | END 2021-09-01 09:44 | disposition home or self-care (01) | LOC: LBN 09:43 | PROVIDERS: PCP Nurse Practitioner Family; Visit Provider Nurse Practitioner Family | DX: R30.0 Dysuria (principal) | CPT/HCPCS: 87086 ==

== ENCOUNTER 2022-05-14 08:41 | Outpatient (CLI) | payer OTHER, SELFPAY ==
[2022-05-14 12:32] LABS: Anion Gap 6.3 mmol/L (3-11); BUN 11 mg/dL (7-18); CO2 30.7 mmol/L (21.0-32.0); CREATININE 1.1 mg/dL (0.70-1.30); Calcium 10.2 mg/dL (8.5-10.1); Chloride 102 mmol/L (98-107); Estimated GFR 88.67 (mL/min/1.73m2); Glucose 85 mg/dL (74-106); Potassium 3.7 mmol/L (3.5-5.1); Sodium 139 mmol/L (136-145)
[2022-05-15 09:58] LABS: HIV-1/2 Ag & Ab Screen Negative (Negative)
== END 2022-05-14 08:42 | disposition home or self-care (01) ==
PROVIDERS: PCP Nurse Practitioner Family; Referring Provider Nurse Practitioner Family; Visit Provider Nurse Practitioner Family
DX: R61 Generalized hyperhidrosis (principal); G93.2 Benign intracranial hypertension; Z11.4 Encounter for screening for human immunodeficiency virus [HIV]
CPT/HCPCS: 36415; 80048; 87389; 84443

== ENCOUNTER 2022-08-05 09:06 | Emergency (ER) | payer OTHER, SELFPAY ==
[2022-08-05 09:10] VITALS: BP 114/68; PULSE 58; RESP 18; TEMP 36.7; O2SAT 98
--- NOTE | 2022-08-05 09:28 | W.ED.GENAD ---
Discharge Plan Disposition Patient Disposition: Home Condition: Good Discharge Details Clinical Impression: Ecchymosis Primary Care Provider: Harley Graves ED Provider: Heather Pimentel Home Meds and New Rx's Prescriptions: Continued loratadine [Allergy Relief (loratadine)] 10 mg tablet 10 mg PO DAILY Qty: 90 3RF ondansetron HCl [Zofran] 4 mg tablet 4 mg PO Q8H PRN (Reason: nausea and vomiting) Qty: 20 0RF Aimovig Autoinjector 140 mg/mL auto-injector 140 mg SUBCUT Q1-3M Qty: 1 3RF furosemide [Lasix] 20 mg tablet 20 mg PO BID Qty: 180 3RF gabapentin 300 mg capsule 300 mg PO BID Qty: 180 3RF rimegepant 75 mg tablet,disintegrating 75 mg PO ONCE PRN (Reason: migraine headache) Qty: 2 3RF Rx Instructions: as a single dose acetaminophen [Acetaminophen Extra Strength] 500 mg Tablet 1,000 mg PO Q6H PRN Discharge Instructions Instructions: Hematoma (ED) Additional Instructions: While the exact cause is unclear, your exam is most consistent with bruising likely from some damage to your bicep. Bicep does seem to be intact. To help with swelling, please continue with compression such as half of the Yogesh wrap. Encouraged rest, ice, elevation. Tylenol and ibuprofen as needed for discomfort. Do not see any evidence to suggest infection or blood clot at today's visit. However, if you develop numbness/tingling, increased pain, redness, fever/chills, or other new/worsening symptoms please seek care urgently once again. Otherwise, please follow-up with primary care in 2 weeks for reevaluation. Referrals: Harley Graves, COMPUTER EDUCATION TEACHER [Primary Care Provider] - Discharge Data Discharge Date/Time-TO BE ENTERED AT DEPARTURE: 08/05/22 10:16 Medical Decision Making Patient is a pleasant 37-year-old [id number] male presents today with chief complaint of left elbow ecchymosis. States that he woke with this yesterday morning with no known injury. Reports that it was much smaller yesterday morning he was able to show image of this. Reports that he has begun starting a new stretching routine during the day but is not having any heavy lifting. He denies any numbness or tingling. Denies any trauma. Denies easy bruising or bleeding elsewhere. No personal or familial history of DVT, clots or hemophilia. On exam, patient appears nontoxic. He does have a large area of bruising over the anterior aspect of the antecubital fossa. Bruising primarily extends inferiorly and is photographic reproduction technician and more light blue, purple in that area. He has 2+ distal pulses. Strength is intact. He is full range of motion although he does have some discomfort with full flexion. The area is slightly swollen. He has no pain with pronation but does have pain with supination against resistance and indicates the bicep belly as area of discomfort. Sensation intact. At this time, I do not see any evidence to suggest abscess. Patient not an IV drug user. He also does not clinically appear consistent with a DVT nor does he have history or risk factors supportive of this. More concerned with ecchymosis. With the pain with supination in the biceps belly, is likely associated with biceps injury although I do not see any evidence of rupture. Encouraged rest, ice, elevation. Tylenol and ibuprofen as needed for discomfort. Return precautions were discussed. Will apply Yogesh wrap to help with swelling and compression. Advise follow-up with primary care in 2 weeks for reevaluation. Sooner if symptoms worsen. All questions and concerns were addressed and he is in agreement this plan. Patient declined any analgesics as the pain is reported to be fairly minimal. HPI General Date/Time Provider Initiated Documentation: 08/05/22 09:08. Limitations to Documentation: no limitations. Information obtained by: patient and RN notes reviewed. History of Present Illness 37 year old M presents to the emergency department with the chief complaint of left elbow bruise, described as mild, with intensity rated at 3. Quality is described as aching, and is localized to the left and upper extremity. Patient reports no radiation. Patient started experiencing this day(s) (1) and it has been constant. No relieving factors improve symptom(s), Movement worsens symptoms (full flexion) . Patient notes no other symptoms.. Patient did receive the following treatments prior to arrival, none Related Data Home Medications Medication Instructions Recorded Confirmed acetaminophen 500 mg tablet 1,000 mg PO Q6H PRN 07/22/21 08/05/22 (Acetaminophen Extra Strength) ondansetron HCl 4 mg tablet 4 mg PO Q8H PRN nausea and 07/26/21 08/05/22 (Zofran) vomiting #20 tabs rimegepant 75 mg disintegrating 75 mg PO ONCE PRN migraine 03/28/22 08/05/22 tablet headache #2 tabs loratadine 10 mg tablet (Allergy 10 mg PO DAILY #90 tabs 05/14/22 08/05/22 Relief (loratadine)) erenumab-aooe 140 mg/mL 140 mg subcut Q1-3M #1 mL 07/05/22 08/05/22 subcutaneous auto-injector (Aimovig Autoinjector) furosemide 20 mg tablet (Lasix) 20 mg PO BID #180 tabs 07/05/22 08/05/22 gabapentin 300 mg capsule 300 mg PO BID #180 caps 07/05/22 08/05/22 Previous Rx's Medication Instructions Recorded ondansetron HCl 4 mg tablet 4 mg PO Q8H PRN nausea and 07/26/21 (Zofran) vomiting #20 tabs rimegepant 75 mg disintegrating 75 mg PO ONCE PRN migraine 03/28/22 tablet headache #2 tabs loratadine 10 mg tablet (Allergy 10 mg PO DAILY #90 tabs 05/14/22 Relief (loratadine)) erenumab-aooe 140 mg/mL 140 mg subcut Q1-3M #1 mL 07/05/22 subcutaneous auto-injector (Aimovig Autoinjector) furosemide 20 mg tablet (Lasix) 20 mg PO BID #180 tabs 07/05/22 gabapentin 300 mg capsule 300 mg PO BID #180 caps 07/05/22 Allergies Allergy/AdvReac Type Severity Reaction Status Date / Time topiramate [From Topamax] Allergy Unknown Kidney Verified 08/05/22 09:17 stone acetaminophen [From Vicodin] Allergy Verified 08/05/22 09:17 amitriptyline Allergy Verified 08/05/22 09:17 hydrocodone [From Vicodin] Allergy Verified 08/05/22 09:17 verapamil AdvReac Unknown Dizziness/L Verified 08/05/22 09:17 ighthead diamox Allergy Unknown Other (See Uncoded 08/05/22 09:17 Comment) General Stated Complaint: Vascular JACK: 3 Review of Systems Constitutional Constitutional: Reports as per HPI, Denies chills, Denies fever(s), Denies headache(s) and Denies weakness ENT Ears, Nose, Mouth, and Throat: Denies headache(s) Cardiovascular Cardiovascular: Reports as per HPI Respiratory Respiratory: Reports as per HPI and Denies cough Musculoskeletal Musculoskeletal: Reports as per HPI and Denies tingling Integumentary/Breasts Skin/Breast: Reports as per HPI, Denies rash and Denies wounds Neurologic Neurologic: Reports as per HPI, Denies headache(s), Denies tingling, Denies paresthesias and Denies weakness PFS All Active Problems (Updated 08/05/22 @ 09:50 by SACHIN Orr) Ecchymosis (Acute) Umbilical hernia (Acute) Night sweats (Acute) Seasonal allergies (Acute) COVID (Acute) Idiopathic intracranial hypertension (Acute) Tension (Acute) Migraine without aura and with status migrainosus, not intractable (Acute) Occipital neuralgia (Acute) Lumbago (Acute) Medical History Calculus of ureter History of lumbar puncture Hydronephrosis with renal and ureteral calculous obstruction Surgical History S/P ureteral stent placement Social History Smoking/Tobacco Use Status: Never Second Hand Exposure: Yes Smoking risk assessment performed?: Yes Alcohol Intake: current Alcohol Intake frequency: a few times a month Alcohol type: hard liquor Drug use: Never Substance use type: does not use Caregiver/Support person: No Household members: spouse and children Housing: house Communication Needs: None Do you need help understanding health information?: Never Pets and animals: Yes Pets and animals: dog(s) Sexually active: Yes Do you think of yourself as: straight/heterosexual Current gender identity: male What is your relationship status?: How often do you talk on the phone with friends or family?: twice per week How often do you get together with friends or relatives?: once per week How often do you attend bahai or baptism services?: decline to answer Do you belong to any clubs or organized social groups?: no Panel score (0-1 are the most socially isolated patients): 2 What type of physical activity do you participate in: other Details: Playing with my child Duration: 60-90 minutes/day Frequency: daily Laila/Caodaism: Alevism Seatbelt use: always Helmet use: Yes Drive intox or ride w/intox cdl company driver: No Do you feel safe at home: Yes Do you feel safe in your relationship?: Yes Exam Const General: cooperative, healthy appearing, comfortable, no acute distress, well developed and well groomed Nutritional Appearance: average body habitus and well nourished Orientation: alert and awake Resp Effort & Inspection: normal respiratory effort, able to speak in complete sentences and no respiratory distress Cardio Rate: regular rate Rhythm: regular rhythm Skin General skin exam: ecchymosis Neuro General: patient alert and patient awake Cognition: normal cognition Speech: speech normal Gait: normal gait Motor: muscle tone normal throughout Sensory Exam: no sensory deficits noted Extrem Elbow/forearm/wrist images: 1. Area of bruising. Later bruising does extend inferior to this. It does not track medial or proximal. Small amount of swelling. Mild discomfort with palpation. No significant erythema, warmth or fluctuance. No openings of the skin. Is 2+ distal pulses. Sensation is intact in the elbow, wrist, hand. Full range of motion although he does have some discomfort with full flexion. Negative speeds exam but he does have pain with supination against resistance and indicates the biceps belly is area of pain which be proximal to the area of ecchymosis. No palpable defect. Intact hook test. Psych Appearance: grossly normal and well kempt Mental Status: mental status grossly normal Speech and Movement: speech and movement normal Course Vital Signs Vital signs: Vital Signs Temperature 36.7 C 08/05/22 09:10 Pulse 58 L 08/05/22 09:10 Respiratory Rate 18 08/05/22 09:10 Blood Pressure 114/68 08/05/22 09:10 Pulse Oximetry 98 08/05/22 09:10 Temperature 36.7 C 08/05/22 09:10 Temperature Source Oral 08/05/22 09:10 Pulse 58 L 08/05/22 09:10 Respiratory Rate 18 08/05/22 09:10 Respiratory Effort Non-Labored 08/05/22 09:14 Respiratory Depth Normal 08/05/22 09:14 Respiratory Pattern Normal 08/05/22 09:14 Blood Pressure 114/68 08/05/22 09:10 Blood Pressure Position Sitting 08/05/22 09:10 Pulse Oximetry 98 08/05/22 09:10 Oxygen Delivery Method Room Air 08/05/22 09:10 Oxygen Flow Rate 0 08/05/22 09:10 Pain Level 3 08/05/22 09:14 PAWSS Have you Been Recently Intoxicated or Drunk Within the Last 30 days?: No Have you Ever Experienced Previous Episodes of Alcohol Withdrawal?: No Have you ever Experienced Withdrawal Seizures?: No Have you ever Experienced Delirium Tremens(DT)s?: No Have you ever undergone Alcohol Rehabilitation Treatment (i.e, inpt ot outpatient treatment programs)?: No Have you ever Experienced Blackouts?: No Have you ever Combined Alcohol with other Downers within the last 90 days?: No Have you ever Combined Alcohol with any other Substance of Abuse during the last 90 days?: No Result: 0
== END 2022-08-05 10:16 | disposition home or self-care (01) ==
PROVIDERS: Emergency Provider Physician Assistant; PCP Nurse Practitioner Family
DX: R23.3 Spontaneous ecchymoses (principal)
CPT/HCPCS: 99282; 99283

== ENCOUNTER 2022-09-25 19:40 | Emergency (ER) | payer OTHER, SELFPAY ==
[2022-09-25 19:45] VITALS: BP 115/73; PULSE 79; RESP 18; TEMP 36.9; O2SAT 98
--- NOTE | 2022-09-25 20:45 | DI.CT_ITS ---
Exam(s) CT ABDOMEN PELVIS W EXAM: CT ABDOMEN PELVIS W CLINICAL HISTORY: umbilical abd pain, reduc. hernia present TECHNIQUE: Imaging Protocol: Axial computed tomography images with coronal and sagittal reformatted images were created and reviewed CONTRAST MATERIAL: Intravenous: Omnipaque 350 Contrast volume:100 mL Oral: No COMPARISON: CT CT LUMBAR SPINE RECONS from 03/14/[address] ABDOMEN PELVIS W from 03/14/2021 FINDINGS: ABDOMEN: Lung Bases: Normal where visualized. Liver: Normal density. No measurable mass. Portal, Superior Mesenteric, and Splenic Veins: Unremarkable. Gallbladder and Biliary Tract: No radiodense calculus or dilation. Pancreas: Normal density, no abnormal calcifications or inflammatory process. Spleen: Normal. Adrenals: No masses seen. Kidneys: Normal size, contour and axis. There are nonobstructing stones in the lower pole of the left kidney. There is no hydronephrosis. No masses seen. Abdominal Aorta: Abdominal portion non-dilated. Bowel: No obstruction or bowel wall thickening. Appendix is unremarkable. Peritoneal Cavity: No ascites, collection or mesenteric inflammatory response. No free air. Lymph Nodes: Within normal limits. Bones: Within normal limits for the patient's age. Soft Tissues: There is a fat containing umbilical hernia. There is infiltration of the surrounding s oft tissues. Incarceration should be considered. PELVIS: Bladder: Symmetric distention, no gross wall thickening. Reproductive Organs: Unremarkable as visualized. Lymph Nodes: Within normal limits. Bones: Within normal limits for the patient's age. IMPRESSION: Small fat containing periumbilical hernia with mild infiltration in the surrounding soft tissues. Pl ease correlate clinically for evidence of incarceration. RADIATION DOSE DELIVERED: Total DLP DATA REPOSITORY: All CT scans at this facility are submitted to the National Radiology Data Registry (NRDR) Dose Index Registry (DIR) with the [employer] (ACR). RADIATION OPTIMIZATION: All CT scans at this facility use at least one of these dose optimization te chniques: automated exposure control; mA and/or kV adjustment per patient size (includes targeted exa ms where dose is matched to clinical indication); or iterative reconstruction.
[2022-09-25 21:01] LABS: Abs Immature Grans 0.02 10^3/uL (0.0-0.06); Absolute Basophil Count 0.04 10^3/uL (0.0-0.2); Absolute Eosinophil Count 0.19 10^3/uL (0.0-0.7); Absolute Lymphocyte Count 1.21 10^3/uL (1.2-3.4); Absolute Monocyte Count 0.35 10^3/uL (0.1-0.8); Absolute Neutrophil Count 7.03 10^3/uL (1.2-6.7); Basophils % 0.5; Eosinophils % 2.1; HCT 43.9 % (40.0-50.0); HGB 14.5 g/dL (13.5-17.5); Immature Grans % 0.2; Lymphocytes % 13.7; MCH 27.7 pg (27.0-33.0); MCV 84 fL (80-95); MPV 9.4 fL (8.0-11.0); Neutrophils % 79.5; Platelet Count 183 10^3/uL (130-400); RBC 5.23 10^6/uL (4.36-5.78); RDW-SD 39.6 fL; WBC 8.84 10^3/uL (4.4-10.8)
[2022-09-25] MEDS: Ketorolac 15 MG/ML VIAL IVP (21:12)
--- NOTE | 2022-09-25 21:12 | W.ED.GENAD ---
Discharge Plan Disposition Patient Disposition: Home Condition: Good Discharge Details Clinical Impression: Hernia, umbilical Primary Care Provider: Harley Graves ED Provider: Rizwan Recio Home Meds and New Rx's Prescriptions: Continued loratadine [Allergy Relief (loratadine)] 10 mg tablet 10 mg PO DAILY Qty: 90 3RF ondansetron HCl [Zofran] 4 mg tablet 4 mg PO Q8H PRN (Reason: nausea and vomiting) Qty: 20 0RF Aimovig Autoinjector 140 mg/mL auto-injector 140 mg SUBCUT Q1-3M Qty: 1 3RF furosemide [Lasix] 20 mg tablet 20 mg PO BID Qty: 180 3RF gabapentin 300 mg capsule 300 mg PO BID Qty: 180 3RF rimegepant 75 mg tablet,disintegrating 75 mg PO ONCE PRN (Reason: migraine headache) Qty: 2 3RF Rx Instructions: as a single dose acetaminophen [Acetaminophen Extra Strength] 500 mg Tablet 1,000 mg PO Q6H PRN Discharge Instructions Instructions: Umbilical Hernia (ED) Additional Instructions: At this time your umbilical hernia is reducible and is not demonstrating evidence of incarceration or strangulation clinically. However it is important that you continue to take Tylenol and Motrin as needed for pain. Please ice that area throughout the night. If you notice that the hernia feels like it gets stuck again, please return for reassessment. If you notice any worsening of your symptoms, or any new symptoms such as vomiting, diarrhea, fever, chills, shortness of breath, chest pain, numbness, weakness, or fainting , please return immediately to the emergency department for reevaluation. Please follow up with your primary care provider as soon as possible for reassessment and reevaluation. As always, it was a pleasure participating in your medical care today. Referrals: Harley Graves, LICENSE INSPECTOR [Primary Care Provider] - Medical Decision Making 37-year-old male with a past medical history of idiopathic intracranial hypertension, previous kidney stones, small umbilical hernia, presents today for evaluation of abdominal pain. Patient states that since 9 AM today he has had a mild discomfort throughout his abdomen, which originates at the umbilical aspect. He does have a small umbilical hernia which is easily reducible, states that this feels different. He states that his symptoms feel like notable gas. He tried to relieve them with antacid medication, MiraLAX, but had no improvement. He was able to have a bowel movement after taking the MiraLAX but this did not change his symptoms. He denies any fever or chills. He denies any urinary complaints. He denies any hematochezia or melena. He denies any vomiting. No other complaints at this time. No other prior abdominal surgeries. Exam demonstrates a well-appearing male, easily reducible small umbilical hernia, however this is notably tender in that area. No guarding or rebound. No signs of an acute surgical abdomen otherwise. Mild radiation of the pain to the right lateral and left lateral aspect, but no focality of pain there on palpation. Differential is highest for mild enteritis, potential irritation at the site of his hernia, less likely appendicitis. We will get a CT scan, treat with NSAIDs for pain, gently rehydrate, monitor closely and reassess. 11:[address] scan shows a small fat-containing periumbilical hernia with minimal thickening. However on clinical exam it is still easily reducible. Patient states he feels much better, and does not feel the pain that he was having before. The area is slightly sore. No white count or bandemia. Renal function stable, lipase normal, urinalysis negative. Patient otherwise feels well. Symptoms clinically inconsistent with incarcerated or strangulated hernia at this time. I suspect that the patient may have had a slightly or transiently incarcerated hernia which was reduced and now feels well. Recommend continued ice at home as needed, and Tylenol and Motrin. Patient feels comfortable with plan. Discussed red flags for which to return. I have extensively reviewed the treatment plan and discharge instructions with the patient. I have addressed all patient concerns at this time. The patient was made aware of what symptoms to monitor for that would warrant a return to the emergency department. Discussed the plan with the patient, they demonstrate verbal understanding and agreement with our assessment and plan at this time. The documentation in this chart was dictated using [employer] dictation software. Please excuse any dictation errors. FINDINGS: Liver: Normal. No mass. Gallbladder and bile ducts: Normal. No calcified stones. No ductal dilation. Pancreas: Normal. No ductal dilation. Spleen: Normal. No splenomegaly. Adrenal glands: Normal. No mass. Kidneys and ureters: Left-sided nephrolithiasis in the lower pole. No hydronephrosis. Stomach and bowel: Unremarkable. No obstruction. No mucosal thickening. Appendix: No evidence of appendicitis. Intraperitoneal space: Unremarkable. No free air. No significant fluid collection. Vasculature: Unremarkable. No abdominal aortic aneurysm. Lymph nodes: Unremarkable. No enlarged lymph nodes. Urinary bladder: Unremarkable as visualized. Reproductive: Unremarkable as visualized. Bones/joints: Unremarkable. No acute fracture. Soft tissues: Right periumbilical fat containing hernia measuring approximally 3.2 cm with minimal thickening noted on the sagittal images 74-75. IMPRESSION: Small fat containing periumbilical hernia as noted with minimal thickening. Correlate clinically for incarceration Left-sided nephrolithiasis without hydroureteronephrosis Thank you for allowing us to participate in the care of your patient. Dictated and Authenticated by: Vernon Spivey MD 09/25/2022 9:57 PM Eastern Time ([place] & [place]) HPI General Date/Time Provider Initiated Documentation: 09/25/22 20:35. HPI Narrative: 37-year-old male with a past medical history of idiopathic intracranial hypertension, previous kidney stones, small umbilical hernia, presents today for evaluation of abdominal pain. Patient states that since 9 AM today he has had a mild discomfort throughout his abdomen, which originates at the umbilical aspect. He does have a small umbilical hernia which is easily reducible, states that this feels different. He states that his symptoms feel like notable gas. He tried to relieve them with antacid medication, MiraLAX, but had no improvement. He was able to have a bowel movement after taking the MiraLAX but this did not change his symptoms. He denies any fever or chills. He denies any urinary complaints. He denies any hematochezia or melena. He denies any vomiting. No other complaints at this time. No other prior abdominal surgeries. Related Data Home Medications Medication Instructions Recorded Confirmed acetaminophen 500 mg tablet 1,000 mg PO Q6H PRN 07/22/21 09/07/22 (Acetaminophen Extra Strength) ondansetron HCl 4 mg tablet 4 mg PO Q8H PRN nausea and 07/26/21 09/07/22 (Zofran) vomiting #20 tabs rimegepant 75 mg disintegrating 75 mg PO ONCE PRN migraine 03/28/22 09/07/22 tablet headache #2 tabs loratadine 10 mg tablet (Allergy 10 mg PO DAILY #90 tabs 05/14/22 09/07/22 Relief (loratadine)) erenumab-aooe 140 mg/mL 140 mg subcut Q1-3M #1 mL 07/05/22 09/07/22 subcutaneous auto-injector (Aimovig Autoinjector) furosemide 20 mg tablet (Lasix) 20 mg PO BID #180 tabs 07/05/22 09/07/22 gabapentin 300 mg capsule 300 mg PO BID #180 caps 07/05/22 09/07/22 Previous Rx's Medication Instructions Recorded ondansetron HCl 4 mg tablet 4 mg PO Q8H PRN nausea and 07/26/21 (Zofran) vomiting #20 tabs rimegepant 75 mg disintegrating 75 mg PO ONCE PRN migraine 03/28/22 tablet headache #2 tabs loratadine 10 mg tablet (Allergy 10 mg PO DAILY #90 tabs 05/14/22 Relief (loratadine)) erenumab-aooe 140 mg/mL 140 mg subcut Q1-3M #1 mL 07/05/22 subcutaneous auto-injector (Aimovig Autoinjector) furosemide 20 mg tablet (Lasix) 20 mg PO BID #180 tabs 07/05/22 gabapentin 300 mg capsule 300 mg PO BID #180 caps 07/05/22 Allergies Allergy/AdvReac Type Severity Reaction Status Date / Time topiramate [From Topamax] Allergy Unknown Kidney Verified 09/07/22 14:37 stone acetaminophen [From Vicodin] Allergy Verified 09/07/22 14:37 amitriptyline Allergy Verified 09/07/22 14:37 hydrocodone [From Vicodin] Allergy Verified 09/07/22 14:37 verapamil AdvReac Unknown Dizziness/L Verified 09/07/22 14:37 ighthead diamox Allergy Unknown Other (See Uncoded 09/07/22 14:37 Comment) General Stated Complaint: Abd Prob JACK: 3 Review of Systems All systems reviewed & are unremarkable except as noted in HPI and below PFSH All Active Problems (Updated 09/25/22 @ 22:57 by Rizwan Recio DO) Hernia, umbilical (Acute) Umbilical hernia (Acute) Night sweats (Acute) Seasonal allergies (Acute) COVID (Acute) Idiopathic intracranial hypertension (Acute) Tension (Acute) Migraine without aura and with status migrainosus, not intractable (Acute) Occipital neuralgia (Acute) Lumbago (Acute) Medical History Calculus of ureter History of lumbar puncture Hydronephrosis with renal and ureteral calculous obstruction Surgical History S/P ureteral stent placement Social History Smoking/Tobacco Use Status: Never Second Hand Exposure: Yes Smoking risk assessment performed?: Yes Alcohol Intake: current Alcohol Intake frequency: a few times a month Alcohol type: hard liquor Drug use: Never Substance use type: does not use Caregiver/Support person: No Household members: spouse and children Housing: house Communication Needs: None Do you need help understanding health information?: Never Pets and animals: Yes Pets and animals: dog(s) Sexually active: Yes Do you think of yourself as: straight/heterosexual Current gender identity: male What is your relationship status?: How often do you talk on the phone with friends or family?: twice per week How often do you get together with friends or relatives?: once per week How often do you attend confucianism or religion services?: decline to answer Do you belong to any clubs or organized social groups?: no Panel score (0-1 are the most socially isolated patients): 2 What type of physical activity do you participate in: other Details: Playing with my child Duration: 60-90 minutes/day Frequency: daily Laila/Uatsdin: Baptist Seatbelt use: always Helmet use: Yes Drive intox or ride w/intox 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 3.ENT: Atraumatic external nose and ears. Moist MM. Neck: Symmetric, trachea midline, No thyromegaly. 4.CVS: +S1/S2, No murmurs or gallops. Peripheral pulses 2+ and equal in all extremities. Brisk capillary refill in all extremities. 5.RESP: Unlabored respiratory effort. Clear to auscultation bilaterally. No wheezes rales or rhonchi 6.GI: Soft, nondistended. No guarding or rebound. Patient does demonstrate an easily reducible very small umbilical hernia. However this area is tender on palpation. Even in spite of reduction. No other focal abdominal pain. No pain at McBurney's point, negative Baptiste sign. Mild radiation though from the central component on generalized palpation no. No genital pain or tenderness. 7.MSK: Normocephalic/Atraumatic, Extremities w/o deformity or ttp No cyanosis or clubbing, Normal movement of all extremities 8.Skin: Warm, Dry. No rashes or lesions. 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 Sensation grossly intact, no focal neurologic deficits. 10.Psych: (AAO) x3. Appropriate mood and affect Course Vital Signs Vital signs: Vital Signs Temperature 36.9 C 09/25/22 19:45 Pulse 79 09/25/22 19:45 Respiratory Rate 18 09/25/22 19:45 Blood Pressure 115/73 09/25/22 19:45 Pulse Oximetry 98 09/25/22 19:45 Temperature 36.9 C 09/25/22 19:45 Temperature Source Oral 09/25/22 19:45 Pulse 79 09/25/22 19:45 Respiratory Rate 18 09/25/22 19:45 Blood Pressure 115/73 09/25/22 19:45 Blood Pressure Position Sitting 09/25/22 19:45 Pulse Oximetry 98 09/25/22 19:45 Oxygen Delivery Method Room Air 09/25/22 19:45 Oxygen Flow Rate 0 09/25/22 19:45 Pain Level 9 09/25/22 19:45 Lab/Test Results Lab/Test Results: Laboratory Tests Range/Units 09/25/22 20:28 WBC (4.4-10.8) 10^3/uL 8.84 RBC (4.36-5.78) 10^6/uL 5.23 Hgb (13.5-17.5) g/dL 14.5 Hct (40.0-50.0) % 43.9 MCV (80-95) fL 84 MCH (27.0-33.0) pg 27.7 MCHC (32.0-36.0) % 33.0 RDW (11.8-14.1) % 13.0 Plt Count (130-400) 10^3/uL 183 MPV (8.0-11.0) fL 9.4 Immature Gran % 0.2 Neutrophils % 79.5 Lymphocytes % 13.7 Monocytes % 4.0 Eosinophils % 2.1 Basophils % 0.5 Nucleated RBC % (0.0-0.3) % 0.0 Absolute Neutrophils (1.2-6.7) 10^3/uL 7.03 H Absolute Lymphocytes (1.2-3.4) 10^3/uL 1.21 Absolute Monocytes (0.1-0.8) 10^3/uL 0.35 Absolute Eosinophils (0.0-0.7) 10^3/uL 0.19 Absolute Basophils (0.0-0.2) 10^3/uL 0.04
[2022-09-25 21:15] LABS: ALT 29 U/L (16-63); AST 16 U/L (15-37); Albumin 4.1 g/dL (3.4-5.0); Alkaline Phosphatase 115 U/L (46-116); Anion Gap 6.1 mmol/L (3-11); BUN 15 mg/dL (7-18); Bilirubin, Total 0.8 mg/dL (0.2-1.0); CO2 29.9 mmol/L (21.0-32.0); CREATININE 1.2 mg/dL (0.70-1.30); Calcium 10.1 mg/dL (8.5-10.1); Chloride 102 mmol/L (98-107); Estimated GFR 79.88 (mL/min/1.73m2); Glucose 108 mg/dL (74-106); Lipase 39 U/L (16-77); Potassium 3.2 mmol/L (3.5-5.1); Sodium 138 mmol/L (136-145); Total Protein 7.8 g/dL (6.4-8.2)
[2022-09-25] MEDS: Normal Saline 1,000 ML 1000 ML IV (21:16)
[2022-09-25] MEDS: Dicyclomine 10 MG CAP PO (21:16)
[2022-09-25 21:21] LABS: Bilirubin Negative (Negative); Blood Negative (Negative); Clarity Clear (Clear); Glucose Negative (Negative); Ketones Negative (Negative); Leukocyte Esterase Negative (Negative); Nitrite Negative (Negative); Urobilinogen 0.2 mg/dL (Up to 0.2)
[2022-09-25] MEDS: Normal Saline Flush 10 ML SYR IJ (21:24)
[2022-09-25] MEDS: Omnipaque 350 MG/ML 100 ML BTL IJ (21:26)
[2022-09-25] MEDS: Normal Saline - Diluent 50 ML VIAL IV (21:27)
--- NOTE | 2022-09-25 21:59 | DI.VRAD_ITS ---
PROCEDURE INFORMATION: Exam: CT Abdomen And Pelvis With Contrast Exam date and time: 09/25/2022 9:27 PM Age: 37 years old Clinical indication: Other: Umbilical abd pain, reduc. Hernia present TECHNIQUE: Imaging protocol: Computed tomography of the abdomen and pelvis with contrast. Radiation optimization: All CT scans at this facility use at least one of these dose optimization techniques: automated exposure control; mA and/or kV adjustment per patient size (includes targeted exams where dose is matched to clinical indication); or iterative reconstruction. Contrast material: OMNIPAQUE 350; Contrast volume: 100 ml; Contrast route: INTRAVENOUS (IV); COMPARISON: CT ABDOMEN PELVIS W 03/14/2021 8:44 PM FINDINGS: Liver: Normal. No mass. Gallbladder and bile ducts: Normal. No calcified stones. No ductal dilation. Pancreas: Normal. No ductal dilation. Spleen: Normal. No splenomegaly. Adrenal glands: Normal. No mass. Kidneys and ureters: Left-sided nephrolithiasis in the lower pole. No hydronephrosis. Stomach and bowel: Unremarkable. No obstruction. No mucosal thickening. Appendix: No evidence of appendicitis. Intraperitoneal space: Unremarkable. No free air. No significant fluid collection. Vasculature: Unremarkable. No abdominal aortic aneurysm. Lymph nodes: Unremarkable. No enlarged lymph nodes. Urinary bladder: Unremarkable as visualized. Reproductive: Unremarkable as visualized. Bones/joints: Unremarkable. No acute fracture. Soft tissues: Right periumbilical fat containing hernia measuring approximally 3.2 cm with minimal thickening noted on the sagittal images 74-75. IMPRESSION: Small fat containing periumbilical hernia as noted with minimal thickening. Correlate clinically for incarceration Left-sided nephrolithiasis without hydroureteronephrosis Dictated and Authenticated by: Vernon Spivey MD. Ordering:CHRISTOPHER Astorga MD
[2022-09-25 23:10] VITALS: BP 114/67; PULSE 78; RESP 18; TEMP 36.4; O2SAT 95
== END 2022-09-25 23:17 | disposition home or self-care (01) ==
PROVIDERS: Emergency Provider Student in an Organized Health Care Education/Training Program; PCP Nurse Practitioner Family
DX: K42.9 Umbilical hernia without obstruction or gangrene (principal)
CPT/HCPCS: 80053; 83690; 96361; 96374; 99285; 74177; 81003; 85025; 99284; J1885; J3490

== ENCOUNTER 2023-05-15 08:32 | Outpatient (CLI) | payer OTHER, SELFPAY ==
[2023-05-15 12:29] LABS: Calculated LDL 80 mg/dL (<100); Cholesterol 158 mg/dL (<200); HDL Cholesterol 36 mg/dL (40-60); Triglyceride 212 mg/dL (<150)
[2023-05-15 12:42] LABS: Hemoglobin A1C 5.7 % (<5.7)
== END 2023-05-15 08:33 | disposition home or self-care (01) ==
PROVIDERS: PCP Nurse Practitioner Family; Referring Provider Nurse Practitioner Family; Visit Provider Nurse Practitioner Family
DX: Z13.220 Encounter for screening for lipoid disorders (principal); Z13.1 Encounter for screening for diabetes mellitus
CPT/HCPCS: 36415; 80061; 83036

== ENCOUNTER → 2023-06-13 20:51 | Outpatient (CLI) | payer OTHER, SELFPAY ==
--- NOTE | 2023-06-13 18:17 | DI.RAD_ITS ---
Exam(s) XR CHEST 2V PA LATERAL EXAM: XR CHEST 2V PA LATERAL CLINICAL HISTORY: evaluate pathology. TECHNIQUE: 2D digital imaging was performed. COMPARISON: CR XR CHEST 2V PA LATERAL from 02/14/2021 FINDINGS: 2 views: Heart size is upper normal. The mediastinum is not widened. Right lung is clear. There is platelike atelectasis in the left lung base. No pleural effusions. N o pulmonary edema. No pneumothorax. No fractures IMPRESSION: There is platelike atelectasis in left lung base. DATA REPOSITORY: RADIATION DOSE DELIVERED:
== END ==
PROVIDERS: PCP Nurse Practitioner Family; Visit Provider Nurse Practitioner Family
DX: J18.9 Pneumonia, unspecified organism (principal); J98.11 Atelectasis
CPT/HCPCS: 71046

== ENCOUNTER 2023-07-08 06:13 | Day surgery (SDC) | payer OTHER, SELFPAY ==
--- NOTE | 2023-07-07 18:35 | PDOC.DSDIS_ITS ---
Date of service: 07/08/23 Time of Service: 08:05 Discharge Plan Disposition Patient Disposition: Home Condition: Good Discharge Details Reason For Visit: diagnostic colonoscopy Attending Provider: Alfonso Vargas Primary Care Provider: Harley Graves Home Meds and New Rx's Prescriptions: Continued loratadine [Allergy Relief (loratadine)] 10 mg tablet 10 mg PO DAILY Qty: 90 3RF rimegepant 75 mg tablet,disintegrating 75 mg PO ONCE PRN (Reason: migraine headache) Qty: 8 3RF Rx Instructions: as a single dose albuterol sulfate 90 mcg/actuation HFA aerosol inhaler 2 puff inhalation Q6H PRN (Reason: shortness of breath or wheezing) Qty: 6.7 0RF (DME) Aerochamber MV Spacer See Rx Instructions .Route Qty: 1 0RF Rx Instructions: As directed ondansetron HCl [Zofran] 4 mg tablet 4 mg PO Q8H PRN (Reason: nausea and vomiting) Qty: 20 0RF furosemide [Lasix] 20 mg tablet 20 mg PO BID Qty: 180 3RF gabapentin 300 mg capsule 300 mg PO BID Qty: 180 3RF Aimovig Autoinjector 140 mg/mL auto-injector 140 mg SUBCUT Q1-3M Qty: 1 3RF acetaminophen [Acetaminophen Extra Strength] 500 mg Tablet 1,000 mg PO Q6H PRN Discharge Instructions Additional Instructions: [place] we were able to complete your colonoscopy today without any problems. I did not see any signs of active inflammation that would support a diagnosis such as Crohn's disease or ulcerative colitis. Like we talked about, I did perform some biopsies along the length of your colon because there are other forms of inflammation of the large intestine that are not always evident to the naked eye. When I have the results of those biopsies I will be in touch. Incidentally, I also found 1 small polyp. I was able to remove it without any difficulty. Similar to your biopsies, I will send this off for the pathologist to review. At the very longest, you will need another colonoscopy in 5 years because of your family history. If this polyp turns out to be the more aggress mayela type, then that might need to be shortened to 3 years. I will let you know as soon as I have it. 1. If tolerated, consume a soft, low fiber diet for 1-2 days. 2[address] Do not drive, drink alcohol, operate machinery, make critical decisions, or do activities that require coordination or balance for 24 hours. 3. Because air was put into your colon during the procedure, expelling air from your rectum (passing gas or farting) is normal. 4. You may not have a bowel movement for 1-3 days because of the colonoscopy prep. This is normal. 5. Go directly to the emergency room if you notice any of the following: Develop chills (warm to touch), or if you have a thermometer and your temperature is above 101 Difficulty breathing or difficultly swallowing Persistent vomiting Severe abdominal pain, other than gas cramps Severe chest pain Black, tarry stools Any bleeding ? exceeding one tablespoon 6. Call your physician if the site where your intravenous was started becomes red, swollen, painful, and warm to touch. 7. Your physician has reviewed your pre-procedure medications. Please continue to take those medications as previously ordered. You will be given specific information/education regarding any changes to your medications before leaving. Activity:: Activity as Tolerated Diet:: As Tolerated Discharge Orders Discharge Orders: Discharge Order (Routine); Ordered 07/07/23 Ordered By: lAfonso Vargas DS: Diagnosis Discharge Diagnosis (1) Diarrhea: Status: Acute Asessment and Plan: Will follow-up on biopsy results
--- NOTE | 2023-07-07 18:38 | COLE_ITS ---
Date of service: 07/08/23 Time of Service: 08:07 Colonoscopy Report Date of procedure: 07/08/23 Pre-op diagnosis general: Diarrhea Post-op diagnosis procedure note: other (Colon polyp) Procedure: Diagnostic colonoscopy with biopsies and polypectomy Surgeon: Alfonso Vargas Anesthesia Type: General:No Airway Estimated blood loss (mL): 10 Pathology: other (Random colon biopsies, 0.25 cm polyp at 35 cm) Complications: None Disposition: same day Indications: Injury is a 38-year-old male with family history of colon cancer who is recently been experiencing diarrhea. Prep: Miralax/Dulcolax Procedure Start Time: 07:40 Procedure End Time: 07:57 Retraction Time: 9 Findings: Grossly normal-appearing large intestine. 0.25 cm polyp at 35 cm from the anus Procedure Description: After the induction of monitored anesthetic care, and with the patient in left lateral decubitus position, I began by performing an external anorectal exam.? Perineum and skin were normal, as was the anal verge.? There was no evidence of external hemorrhoids.? Next, I performed a digital rectal exam.? I did not appreciate any abnormal findings.? Next, I advanced a colonoscope into the rectal vault.? I performed retroflexion.? This appeared normal.? Using insufflation, I then advanced the colonoscope beyond the rectal folds and into the sigmoid colon before advancing towards the cecum.? I did not see any signs of active inflammation in the rectum. There was no cobblestoning. The scope was noted to be in the cecum by identification of the ileocecal valve and appendiceal orifice.? I then began withdrawing the colonoscope using repeated irrigation as necessary for full evaluation of the colonic mucosa. Around 35 cm from the anal verge I identified a 0.25 cm polyp. ?It appeared flat in character. ?I was able to remove this with a cold forcep polypectomy. ?I examined the site, and there was minimal bleeding. ?Once this was completed, I continued to withdraw the scope and examine the remainder of the colonic mucosa.?Once the scope was withdrawn to the level of the rectum, great care was taken to examine portions of the rectal folds.? Finally, the scope was withdrawn and the patient was brought to the same-day surgery recovery unit as the anesthetic wore off. ?The findings and instructions were shared with the patient prior to discharge. Cable Bowel Prep Cable Bowel Prep Right Colon: 3 Left Colon: 3 Transverse Colon: 3 Total Score: 9
[2023-07-08 06:20] VITALS: BP 133/72; PULSE 85; RESP 16; TEMP 36.7; O2SAT 96
[2023-07-08] MEDS: Lactated Ringers 1,000 ML 80 ML IV (06:40)
--- NOTE | 2023-07-08 07:23 | HPE_ITS ---
Date of service: 07/08/23 Time of Service: 07:23 Assessment and Plan Assessment and plan (1) Diarrhea: Status: Acute Assessment and plan: We reviewed the plan for diagnostic colonoscopy today, possible biopsies. I think he has a good understanding of the risks and benefits of the procedure. You are safe to proceed as planned. Qualifiers: Diarrhea type: unspecified type Qualified Code(s): R19.7 - Diarrhea, unspecified History of Present Illness History of Present Illness Chief Complaint: Diarrhea Narrative: Austin was referred for diagnostic colonoscopy because of diarrhea, as well as a first-degree relative with colon cancer. It has been ongoing for about a month to a month and a half. He was awoken from sleep with cramping abdominal and flank pain. He had some diarrhea that night that helped improve her chest discomfort. He had several other episodes of diarrhea through the night and into the next day. As best he can recall, it resolved after a day or so. However, he has had multiple recurrent episodes of diarrhea, with increasing frequency over the past few weeks. He estimates he is having bowel movements around 7-8 times per day. They are typically associated with cramping in the abdomen. He denies any melena, hematochezia, and aside from the liquid nature of his stools, there is nothing else obvious it out of the ordinary. Pepto- Bismol helps with the diarrhea, but typically results in a little bit of constipation in the days and follow its use. He is not able to associate it with any particular type of food. Past medical history is most significant for migraine headaches are associated with idiopathic intracranial hypertension. He has had some success with the addition of monoclonal antibody therapy. He denies any history of abdominal surgeries. Since his office visit, his diarrhea has basically resolved. He has been having 1-2 bowel movements per week at this point. He was not a 20 stool studies with the outpatient lab. [facility] All Active Problems Diarrhea (Acute) Umbilical hernia (Acute) Night sweats (Acute) Seasonal allergies (Acute) COVID (Acute) Idiopathic intracranial hypertension (Acute) Tension (Acute) Migraine without aura and with status migrainosus, not intractable (Acute) Occipital neuralgia (Acute) Lumbago (Acute) Medical History History of lumbar puncture Hydronephrosis with renal and ureteral calculous obstruction Calculus of ureter Surgical History S/P ureteral stent placement Social History Smoking/Tobacco Use Status: Never Second Hand Exposure: Yes Smoking risk assessment performed?: Yes Alcohol Intake: current Alcohol Intake frequency: holidays/special occasions only Alcohol type: hard liquor Drug use: Never Substance use type: does not use Adopted: No Caregiver/Support person: No Foster care: No Household members: spouse and children Housing: house Number of Children: 1 number of grandchildren: 0 Communication Needs: None Education Level: college Do you need help understanding health information?: Rarely 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 Pets and animals: Yes Pets and animals: dog(s) Sexually active: Yes Do you think of yourself as: straight/heterosexual Current gender identity: male What is your relationship status?: How often do you talk on the phone with friends or family?: once per week How often do you get together with friends or relatives?: once per week How often do you attend jainism or baptism services?: 1-3 times per year Do you belong to any clubs or organized social groups?: no Panel score (0-1 are the most socially isolated patients): 1 What type of physical activity do you participate in: walking and other Details: Playing with my child Duration: 45-60 minutes/day Frequency: daily Laila/Pentecostalism: Pentecostal Agree to transfusion: Yes Seatbelt use: always Helmet use: Yes Drive 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 Drive intox or w/intox cdl team truck driver: rarely Working smoke detector in home: Yes Carbon monox detector in home: Yes Firearms in home: No Do you feel safe at home: Yes Do you feel safe in your relationship?: Yes Meds Allergies and Home Medications Allergies Allergy/AdvReac Type Severity Reaction Status Date / Time topiramate [From Topamax] Allergy Unknown Kidney Verified 07/08/23 06:19 stone acetaminophen [From Vicodin] Allergy Verified 07/08/23 06:19 amitriptyline Allergy Verified 07/08/23 06:19 hydrocodone [From Vicodin] Allergy Verified 07/08/23 06:19 verapamil AdvReac Unknown Dizziness/L Verified 07/08/23 06:19 ighthead diamox Allergy Unknown Other (See Uncoded 07/08/23 06:19 Comment) Home Medications Medication Instructions Recorded Confirmed Type acetaminophen 500 mg tablet 1,000 mg PO Q6H PRN 07/22/21 07/08/23 History (Acetaminophen Extra Strength) ondansetron HCl 4 mg tablet 4 mg PO Q8H PRN nausea and 07/26/21 07/08/23 Rx (Zofran) vomiting #20 tabs loratadine 10 mg tablet (Allergy 10 mg PO DAILY #90 tabs 05/14/22 07/08/23 Rx Relief (loratadine)) furosemide 20 mg tablet (Lasix) 20 mg PO BID #180 tabs 07/05/22 07/08/23 Rx gabapentin 300 mg capsule 300 mg PO BID #180 caps 07/05/22 07/08/23 Rx erenumab-aooe 140 mg/mL 140 mg subcut Q1-3M #1 mL 04/16/23 07/08/23 Rx subcutaneous auto-injector (Aimovig Autoinjector) albuterol sulfate 90 mcg/actuation 2 puff inhalation Q6H PRN 06/13/23 07/08/23 Rx aerosol inhaler shortness of breath or wheezing #6.7 grams inhalational spacing device #1 ea 06/13/23 06/19/23 Rx (Aerochamber MV spacer) rimegepant 75 mg disintegrating 75 mg PO ONCE PRN migraine 06/19/23 07/08/23 Rx tablet headache #8 tabs Exam Const General: cooperative, healthy appearing and not in acute distress Neck Neck: normal visual inspection, no lymphadenopathy and supple Resp Effort & Inspection: normal respiratory effort Auscultation: clear to auscultation bilaterally Cardio Jugular venous pressure: no JVD Rate: regular rate Rhythm: regular rhythm Heart Sounds: S1 normal and S2 normal GI Inspection: normal to inspection Palpation: soft, no guarding, no hernias and nontender Percussion: normal to percussion Auscultation: normal bowel sounds Neuro General: patient alert, patient awake and patient oriented x3 Psych Appearance: grossly normal Results Last Vital Signs Temp 98.1 F 07/08/23 06:20 Pulse 85 07/08/23 06:20 Resp 16 07/08/23 06:20 BP 133/72 07/08/23 06:20 Pulse Ox 96 07/08/23 06:20 Time Spent Time spent with Patient: <40 minutes Time was spent: counseling the patient
--- NOTE | 2023-07-08 07:25 | W.ANESPRE ---
General Info Date of Service Date Performed: 07/08/23 Height: 6 ft Weight: 113.7 kg Body Mass Index (BMI): 34.0 Surgical Procedure: Operation Date: 07/08/23 07:35 Proposed Procedure Side Surgeon p Colonoscopy Alfonso Vargas MD Actual Procedure Side Surgeon p Colonoscopy Not Applicable Alfonso Vargas MD Pre-Op Diagnosis Post-Op Diagnosis diagnostic colonoscopy Meds Allergies and Home Medications Allergies Allergy/AdvReac Type Severity Reaction Status Date / Time topiramate [From Topamax] Allergy Unknown Kidney Verified 07/08/23 06:19 stone acetaminophen [From Vicodin] Allergy Verified 07/08/23 06:19 amitriptyline Allergy Verified 07/08/23 06:19 hydrocodone [From Vicodin] Allergy Verified 07/08/23 06:19 verapamil AdvReac Unknown Dizziness/L Verified 07/08/23 06:19 ighthead diamox Allergy Unknown Other (See Uncoded 07/08/23 06:19 Comment) Home Medication Medication Instructions Recorded acetaminophen 500 mg tablet 1,000 mg PO Q6H PRN 07/22/21 (Acetaminophen Extra Strength) ondansetron HCl 4 mg tablet 4 mg PO Q8H PRN nausea and 07/26/21 (Zofran) vomiting #20 tabs loratadine 10 mg tablet (Allergy 10 mg PO DAILY #90 tabs 05/14/22 Relief (loratadine)) furosemide 20 mg tablet (Lasix) 20 mg PO BID #180 tabs 07/05/22 gabapentin 300 mg capsule 300 mg PO BID #180 caps 07/05/22 erenumab-aooe 140 mg/mL 140 mg subcut Q1-3M #1 mL 04/16/23 subcutaneous auto-injector (Aimovig Autoinjector) albuterol sulfate 90 mcg/actuation 2 puff inhalation Q6H PRN 06/13/23 aerosol inhaler shortness of breath or wheezing #6.7 grams inhalational spacing device #1 ea 06/13/23 (Aerochamber MV spacer) rimegepant 75 mg disintegrating 75 mg PO ONCE PRN migraine 06/19/23 tablet headache #8 tabs Current Visit Medications: Current Medications Generic Name Dose Route Start Last Admin Trade Name Freq PRN Reason Stop Dose Admin Hyoscyamine Sulfate 0.125 mg 07/07/23 18:38 Hyoscyamine 0.125 Mg Sl/Oral/Chew SL 08/06/23 18:37 DIRECTED PRN Ringer's Solution 1,000 mls @ 80 mls/hr 07/08/23 06:00 07/08/23 06:40 IV 07/08/23 23:59 80 mls/hr INFUSION ZAC Administration IV Miscellaneous Supplies 1 each 07/08/23 06:00 Iv Access IV 07/08/23 23:59 DIRECTED ZAC Ondansetron HCl 4 mg 07/07/23 18:38 Ondansetron 4 Mg/2 Ml Vial IVP 08/06/23 18:37 Q4H PRN PRN Nausea / Vomiting Sodium Chloride 0 ml 07/08/23 06:00 Normal Saline Flush 10 Ml Syr IV 07/08/23 23:59 PRN PRN Sodium Chloride 0 ml 07/08/23 06:00 Normal Saline 10 Ml Vial IJ 07/08/23 23:59 DIRECTED PRN Sterile Water 0 ml 07/08/23 06:00 Water,Injection,Sterile 10 Ml Vial IJ 07/08/23 23:59 DIRECTED PRN PFSH Active Problems Active Problems: Problem Status Onset Code Diarrhea R19.7 Umbilical hernia K42.9 Night sweats R61 Seasonal allergies J30.2 COVID U07.1 Idiopathic intracranial hypertension G93.2 Tension F48.9 Migraine without aura and with status migrainosus, not intractable G43.001 Occipital neuralgia M54.81 Lumbago M54.5 Medical History Medical History History of lumbar puncture Hydronephrosis with renal and ureteral calculous obstruction Calculus of ureter Surgical History Surgical History S/P ureteral stent placement Tobacco Smoking/Tobacco Use Status: Never Passive smoking exposure: Yes Second hand exposure: Yes Alcohol Alcohol Intake: current Alcohol intake frequency: holidays/special occasions only Alcohol type: hard liquor Substance Use Substance use: Never Substance use type: does not use Vital Signs and Lab Results Vital Signs Most Recent Vital Signs in EMR: Most Recent Vital Signs Temp Pulse Resp BP Pulse Ox 36.7 C 85 16 133/72 96 07/08/23 06:20 07/08/23 06:20 07/08/23 06:20 07/08/23 06:20 07/08/23 06:20 Lab Results Blood Type / Crossmatch: No Data to Display Complete Blood Count: No Data to Display Complete Metabolic Panel: No Data to Display Liver Function Panel: No Data to Display Coagulation Panel: No Data to Display Cardiac Panel: No Data to Display Arterial Blood Gas: No Data to Display Venous Blood Gas: No Data to Display Pancreas Panel: No Data to Display Thyroid Panel: No Data to Display Infectious Disease: No Data to Display Blood Cultures: No Data to Display Toxicology Panel: No Data to Display Anesthesia Assessment and Plan Anesthesia History Personal History: No History of Anesthesia Complications Family History: No Family History of Anesthesia Complications Exercise Tolerance Exercise Tolerance: Metabolic Equivalents>4 Pertinent Negatives Pertinent Negatives: No Symptoms of GERD Cardiac & Pulmonary Exam Cardiac Exam: Normal S1/S2 Heart Sounds Pulmonary Exam: Clear Bilateral Breath Sounds Implantable Cardiac Device Does patient have a Pacemaker or an ICD?: No Airway Exam Known Difficult Airway: No Mallampati Class: 2 Mouth Opening: Normal (> 3cm) Thyromental Distance: Greater than 3 cm Neck Range of Motion: Full ROM Neck Circumference: Normal Teeth Condition: Normal Dentition ASA Classification ASA Score: ASA 2 Emergency Case?: No NPO Status NPO Status: NPO Clears >2 hours, Solids >8 hours Anesthesia Plan Resuscitation Status: Full Code Anesthesia Technique: General Anesthesia Airway Planned: Natural Airway Monitors Used: Standard Monitors
[2023-07-08 07:26] VITALS: BMI 34.0
--- NOTE | 2023-07-08 07:49 | BOWEL_PTH ---
PATIENT: Austin Herrera LOC: [facility] U#:[id number] AGE/SX: 38/M ROOM: RE07/08/[address]: Alfonso Vargas MD : 1985 BED: DIS: 07/08/2023 SPEC #: [id number] RECD: 07/08/23 12:57 STATUS: [place] RE #: [id number] WAGNER: 07/08/23 07:[address]: Alfonso Vargas DEPT: Surgical Specimen RECD BY: Flor Montaño ENTERED: 07/08/23 12:58 SP TYPE: Bowel OTHR DR: Harley Graves, ELLIOTT Tissues: 1 - BIOPSY BOWEL 2 - BIOPSY BOWEL Procedures: GROSS AND MICRO LEVEL 4 Comments: [id number]
[2023-07-08 08:07] VITALS: BP 126/73; PULSE 89; RESP 16; TEMP 36.4; O2SAT 97
--- NOTE | 2023-07-08 08:09 | W.ANESPOSTOP ---
Postoperative Evaluation Date, Time and Location Date Performed: 07/08/23 Time Performed: 08:09 Patient Location: Day Surgery Unit Vital Signs Most Recent Imported Vital Signs: Most Recent Vital Signs Temp Pulse Resp BP Pulse Ox 36.4 C L 89 16 126/73 97 07/08/23 08:07 07/08/23 08:07 07/08/23 08:07 07/08/23 08:07 07/08/23 08:07 Pain Score Most Recent Pain Score: Most Recent Pain Score Pain Level 0 07/08/23 08:07 Assessment Mental Status: Awake (Alert & Oriented to Patient Baseline) Airway and Respiratory Function: Patent airway with normal (patient baseline) respiratory exam Cardiovascular Function: Hemodynamically Stable Hydration Status: Adequately Hydrated Nausea & Vomiting: No Nausea or Vomiting Pain: Pt. Denies Any Pain Peripheral Nerve Block: Patient did not receive a nerve block
[2023-07-08 08:20] VITALS: BP 115/77; PULSE 78; RESP 16; O2SAT 97
== END 2023-07-08 08:42 | disposition home or self-care (01) ==
LOC: SUR 06:13
PROVIDERS: PCP Nurse Practitioner Family; Visit Provider Surgery
PROC: 0DJD8ZZ Inspection of Lower Intestinal Tract, Via Natural or Artificial Opening Endoscopic (ICD-10-PCS; CPT 45378; principal; 2023-07-08 07:30)
DX: R19.7 Diarrhea, unspecified (principal); Z80.0 Family history of malignant neoplasm of digestive organs; K63.5 Polyp of colon; K63.89 Other specified diseases of intestine
CPT/HCPCS: 45380; 88305; J2001; J2704

== ENCOUNTER 2023-12-03 05:52 | Outpatient (CLI) | payer OTHER, SELFPAY ==
[2023-12-03] MEDS: Levalbuterol HFA 15 GM INH 4 PUFF IH (16:27)
[2023-12-03] MEDS: Inhaler, Assist Device 1 EACH MC (16:27)
--- NOTE | 2023-12-06 15:02 | W.PFT ---
Date of service: 12/03/23 Time of Service: 15:33 Pulmonary Function Test Result Indications: Wheezing Interpretation Spirometry: There is no airflow limitation. Technically no bronchodilator response (only 11% increase) but FEV1 did increase by 350cc Lung Volumes: Normal lung volumes Diffusion Capacity: Normal diffusion Airway Pressure: Normal airways resistance Impression Normal pulmonary function testing Clinical Correlation therefore is recommended.
== END 2023-12-03 05:53 | disposition home or self-care (01) ==
LOC: RT 05:52
PROVIDERS: PCP Nurse Practitioner Family; Visit Provider Nurse Practitioner Family
DX: R06.2 Wheezing (principal)
CPT/HCPCS: 94060; 94726; 94729

== ENCOUNTER 2024-05-19 02:06 | Outpatient (CLI) | payer OTHER, SELFPAY ==
[2024-05-19 12:48] LABS: ALT 24 U/L (16-63); AST 12 U/L (15-37); Albumin 4.1 g/dL (3.4-5.0); Alkaline Phosphatase 128 U/L (46-116); Anion Gap 7.9 mmol/L (3-11); BUN 9 mg/dL (7-18); Bilirubin, Total 0.88 mg/dL (0.2-1.0); CO2 30.1 mmol/L (21.0-32.0); CREATININE 1.2 mg/dL (0.70-1.30); Calcium 10.6 mg/dL (8.5-10.1); Calculated LDL 88 mg/dL (<100); Chloride 109 mmol/L (98-107); Cholesterol 156 mg/dL (<200); Estimated GFR 78.89 (mL/min/1.73m2); Glucose 95 mg/dL (74-106); HDL Cholesterol 39 mg/dL (40-60); Potassium 3.8 mmol/L (3.5-5.1); Sodium 147 mmol/L (136-145); Triglyceride 147 mg/dL (<150)
[2024-05-19 13:05] LABS: Hemoglobin A1C 5.2 % (<5.7)
== END 2024-05-19 02:07 | disposition home or self-care (01) ==
LOC: LOS 02:06
PROVIDERS: PCP Nurse Practitioner Family; Visit Provider Nurse Practitioner Family
DX: Z13.220 Encounter for screening for lipoid disorders (principal); Z13.1 Encounter for screening for diabetes mellitus; G93.2 Benign intracranial hypertension; Z23 Encounter for immunization; J30.2 Other seasonal allergic rhinitis; G43.001 Migraine without aura, not intractable, with status migrainosus
CPT/HCPCS: 36415; 80053; 80061; 83036

== ENCOUNTER 2024-06-20 09:14 | Outpatient (CLI) | payer OTHER, SELFPAY ==
--- NOTE | 2024-06-20 09:00 | DI.RAD_ITS ---
Exam(s) XR CHEST 2V PA LATERAL EXAM: XR CHEST 2V PA LATERAL CLINICAL HISTORY: eval pna. TECHNIQUE: 2D digital imaging was performed. COMPARISON: CR XR CHEST 2V PA LATERAL from 06/13/2023 FINDINGS: 2 views: Heart size is normal. The mediastinum is not widened. Lungs are clear. No infiltrates nor pleural effusions. IMPRESSION: No acute pulmonary findings. DATA REPOSITORY: RADIATION DOSE DELIVERED:
--- NOTE | 2024-06-20 09:48 | DI.VRAD_ITS ---
PROCEDURE INFORMATION: Exam: XR Chest Exam date and time: 06/20/2024 9:33 AM Age: 39 years old Clinical indication: Cough TECHNIQUE: Imaging protocol: Radiologic exam of the chest. Views: 2 views. COMPARISON: CR XR CHEST 2V PA LATERAL 06/13/2023 6:13 PM FINDINGS: Lungs: Unremarkable. No consolidation. Pleural spaces: Unremarkable. No pleural effusion. No pneumothorax. Heart/Mediastinum: Unremarkable. No cardiomegaly. Bones/joints: Unremarkable. IMPRESSION: No acute cardiopulmonary process. Dictated and Authenticated by: Rogers Moise MD. Ordering:INEZ Bowles MD
== END 2024-06-20 09:34 ==
PROVIDERS: PCP Nurse Practitioner Family; Visit Provider Nurse Practitioner Family
DX: R05.9 Cough, unspecified (principal)
CPT/HCPCS: 71046

== ENCOUNTER 2024-06-20 09:23 | Outpatient (REF) | payer OTHER, SELFPAY ==
[2024-06-20 15:30] LABS: Bilirubin Negative (Negative); Blood Negative (Negative); Clarity Clear (Clear); Glucose Negative (Negative); Ketones Negative (Negative); Leukocyte Esterase Negative (Negative); Nitrite Negative (Negative); Urobilinogen 0.2 mg/dL (Up to 0.2)
== END 2024-06-20 09:24 | disposition home or self-care (01) ==
LOC: LBN 09:23
PROVIDERS: PCP Nurse Practitioner Family; Visit Provider Nurse Practitioner Family
DX: N39.0 Urinary tract infection, site not specified (principal); R05.9 Cough, unspecified; J18.9 Pneumonia, unspecified organism; R82.90 Unspecified abnormal findings in urine
CPT/HCPCS: 81003

== ENCOUNTER 2025-05-24 03:40 | Outpatient (CLI) | payer BC, SELFPAY ==
--- NOTE | 2025-05-24 09:16 | DI.RAD_ITS ---
Exam(s) XR WRIST RT COMPLETE EXAM: XR WRIST RT COMPLETE CLINICAL HISTORY: Jammed against tree,? FX,RT WRIST PAIN,M25.531. TECHNIQUE: 2D digital imaging was performed of the right wrist. Three views were obtained. PA, lateral and oblique views were obtained. COMPARISON: No exams were available for comparison FINDINGS: BONES: No acute fracture is present. No bony destructive lesion is seen. JOINTS: The carpal bones are normally aligned. SOFT TISSUE: Normal. IMPRESSION: Unremarkable radiographs of the right wrist. DATA REPOSITORY: RADIATION DOSE DELIVERED:
== END 2025-05-24 04:00 ==
LOC: DI 03:40
PROVIDERS: PCP Nurse Practitioner Family; Visit Provider Nurse Practitioner Family
DX: M25.531 Pain in right wrist (principal)
CPT/HCPCS: 73110